=== PATIENT | male | born 1940 | race Caucasian/White ===

== ENCOUNTER 2017-06-22 16:34 | Inpatient (IN) | payer MEDICARE, BC ==
[2017-06-22] MEDS ORDERED: Aspirin 81 MG Tab.Chew PO ONE (17:16)
--- NOTE | 2017-06-22 17:17 | EDM.PDOC ---
ED HPI GENERAL MEDICAL PROBLEM - General Chief Complaint: Chest Pain Stated Complaint: CHEST PAIN Time Seen by Provider: 06/22/17 17:10 Source of Information: Reports: Patient History Limitations: Reports: No Limitations - History of Present Illness INITIAL COMMENTS - FREE TEXT/NARRATIVE: 76-year-old male with known coronary artery disease who has over the past 2 weeks had intermittent chest pain seemingly related to activity. This followed up active case of bronchitis which she was initially on prednisone, then a Zithromax pack then Levaquin. He has been told he has "early bronchitis". 2 years ago he had similar symptoms and received a cardiac stent. Onset: Gradual Location: Reports: Chest. Denies: Abdomen Severity: Mild Worsens with: Reports: Other (Seems to be worse with activity intermittently) Associated Symptoms: Reports: Other (Been chilled a lot, week and tires easily) . Denies: Fever/Chills, Headaches Chest Pain Score (Numeric/FACES): 4 - Related Data Allergies Allergy/AdvReac Type Severity Reaction Status Date / Time No Known Allergies Allergy Verified 06/22/17 16:52 Home Meds: Home Meds Betamethasone Dipropionate [Diprosone 0.05% Crm] 1 applic TOP DAILY PRN [History] HCTZ/Triamterene [Maxzide 25-37.5 MG] 1 tab PO DAILY 08/11/14 [History] Metoprolol Tartrate 25 mg PO BID #60 tablet 08/30/14 [Rx] Nitroglycerin [Nitrostat] 0.4 mg SL ASDIRECTED PRN #30 tab.subl 08/30/14 [Rx] Albuterol [Ventolin HFA] 2 puff INH Q6H 06/30/16 [History] Aspirin [Low Dose Aspirin EC] 81 mg PO DAILY 06/30/16 [History] Chondroitin/Glucosamine [Glucosamine-Chondroitin Capsule] 1 cap PO DAILY [History] Fish Oil/[place]-3 Fatty Acids [Fish Oil 1,000 MG] 1 tab PO DAILY 06/30/16 [ History] Multivitamin [Multi-Day Vitamins] 1 tab PO DAILY 06/30/16 [History] Rivaroxaban [Xarelto] 1 tab PO DAILY 06/30/16 [History] atorvaSTATin [Lipitor] 40 mg PO ONETIME 06/30/16 [History] Past Medical History HEENT History: Reports: Impaired Vision Cardiovascular History: Reports: Afib, CAD, High Cholesterol, Hypertension Respiratory History: Reports: COPD Other Respiratory History: sinus congestion Musculoskeletal History: Reports: Fracture Neurological History: Reports: Concussion, Head Trauma Hematologic History: Reports: Blood Transfusion(s) Dermatologic History: Reports: Other (See Below) Other Dermatologic History: Rash - Infectious Disease History Infectious Disease History: Reports: Chicken Pox - Past Surgical History HEENT Surgical History: Reports: Cataract Surgery Cardiovascular Surgical History: Reports: Coronary Artery Stent GI Surgical History: Reports: Colonoscopy Social & Family History - Tobacco Use Smoking Status *Q: Former Smoker Years of Tobacco use: 30 Used Tobacco, but Quit: Yes Month Tobacco Last Used: 1989 Second Hand Smoke Exposure: No - Caffeine Use Caffeine Use: Reports: Coffee - Recreational Drug Use Recreational Drug Use: No Drug Use in Last 12 Months: No ED ROS GENERAL - Review of Systems Review Of Systems: See Below Constitutional: Reports: Malaise, Weakness. Denies: Fever, Chills HEENT: Reports: No Symptoms Respiratory: Reports: Shortness of Breath (Especially with activity) Cardiovascular: Reports: Chest Pain (Especially with activity) GI/Abdominal: Reports: Other (Patient admits that his stools are been darker over the past several weeks to months). Denies: Abdominal Pain, Nausea, Vomiting : Reports: No Symptoms Skin: Reports: No Symptoms Neurological: Denies: Headache Psychiatric: Reports: No Symptoms ED EXAM, GENERAL - Physical Exam Exam: See Below Exam Limited By: No Limitations General Appearance: Alert, No Apparent Distress Eye Exam: Bilateral Eye: Normal Inspection Respiratory/Chest: No Respiratory Distress, Lungs Clear Cardiovascular: Regular Rate, Rhythm GI/Abdominal: Soft, Non-Tender Rectal (Males) Exam: Bloody Stool, Heme + Stool. No: Mass Extremities: Normal Inspection. No: Pedal Edema Neurological: Alert, Oriented Psychiatric: Normal Affect, Normal Mood Skin Exam: Warm, Dry EKG INTERPRETATION Rhythm: NSR Course - Vital Signs Last Recorded V/S: Last Vital Signs Temp 97.9 F 06/23/17 08:55 Pulse 53 L 06/23/17 11:06 Resp 14 06/23/17 08:55 BP 121/62 06/23/17 09:27 Pulse Ox 93 L 06/23/17 08:55 - Orders/Labs/Meds Orders: Active Orders 24 hr Category Date Time Status EKG 12 Lead [EK] Routine Ther 06/22/17 17:16 Stop Req Medication Orders Acetaminophen (Tylenol) 650 mg PO Q4H PRN PRN Reason: Pain (Mild 1-3)/fever Albuterol (Proventil Neb Soln) 2.5 mg NEB Q4H PRN PRN Reason: Shortness Of Breath/wheezing Albuterol/Ipratropium (Duoneb 3.0-0.5 Mg/3 Ml) 3 ml NEB QIDRT [facility] Last Admin: 06/23/17 11:06 Dose: 3 ml Admin: 06/23/17 07:10 Dose: 3 ml Admin: 06/22/17 22:08 Dose: 3 ml Atorvastatin Calcium (Lipitor) 40 mg PO BEDTIME [facility] Last Admin: 06/22/17 22:08 Dose: 40 mg Betamethasone Dipropionate (Diprolene Af 0.05% Crm) 0 gm TOP DAILY PRN PRN Reason: Itching Pantoprazole Sodium 80 mg/ (Sodium Chloride) 100 mls @ 10 mls/hr IV .Q10H [facility] Last Admin: 06/23/17 10:24 Dose: 10 mls/hr Sodium Chloride (Normal Saline) 1,000 mls @ 75 mls/hr IV ASDIRECTED [facility] Lorazepam (Ativan) 1 mg IV Q6H PRN PRN Reason: Nausea/Vomiting Magnesium Oxide (Magnesium Oxide) 400 mg PO DAILY [facility] Last Admin: 06/23/17 09:28 Dose: 400 mg Admin: 06/22/17 22:07 Dose: 400 mg Metoprolol Tartrate (Lopressor) 25 mg PO BID [facility] Last Admin: 06/23/17 09:27 Dose: 25 mg Admin: 06/22/17 22:08 Dose: Morphine Sulfate (Morphine) 2 mg IVPUSH Q2H PRN PRN Reason: Pain (severe 7-10) Nitroglycerin (Nitrostat) 0.4 mg SL ASDIRECTED PRN PRN Reason: Chest Pain Ondansetron HCl (Zofran Odt) 4 mg PO Q6H PRN PRN Reason: Nausea able to take PO Ondansetron HCl (Zofran) 4 mg IV Q4H PRN PRN Reason: Nausea/Vomiting Oxycodone HCl (Oxycodone) 5 mg PO Q4H PRN PRN Reason: Pain (moderate 4-6) Triamterene/HCTZ (Maxzide 25-37.5 Mg) 1 each PO DAILY [facility] Last Admin: 06/23/17 09:28 Dose: 1 each Zolpidem Tartrate (Ambien) 5 mg PO BEDTIME PRN PRN Reason: Sleep Labs: Laboratory Tests 06/22/17 06/22/17 Range/Units 17:30 17:30 WBC 8.1 (4.5-11.0) K/uL RBC 2.95 L (4.30-5.90) M/uL Hgb 8.3 L D (12.0-15.0) g/dL Hct 27.1 L (40.0-54.0) % MCV 92 (80-98) fL MCH 28 (27-31) pg MCHC 31 L (32-36) % Plt Count 223 (150-400) K/uL Neut % (Auto) 62 (36-66) % Lymph % (Auto) 20 L (24-44) % [place] % (Auto) 10 H (2-6) % Eos % (Auto) 8 H (2-4) % Baso % (Auto) 0 (0-1) % Sodium 144 (140-148) mmol/L Potassium 3.7 (3.6-5.2) mmol/L Chloride 108 (100-108) mmol/L Carbon Dioxide 29 (21-32) mmol/L Anion Gap 6.6 (5.0-14.0) mmol/L BUN 23 H (7-18) mg/dL Creatinine 1.0 (0.8-1.3) mg/dL Est Cr Clr Drug Dosing 67.96 mL/min Estimated GFR (MDRD) > 60 (>60) Glucose 86 (74-106) mg/dL Calcium 8.8 (8.5-10.1) mg/dL Total Bilirubin 0.3 (0.2-1.0) mg/dL AST 17 (15-37) U/L ALT 24 (12-78) U/L Alkaline Phosphatase 37 L (46-116) U/L Troponin I < 0.017 (0.000-0.056) ng/mL Total Protein 6.4 (6.4-8.2) g/dL Albumin 3.3 L (3.4-5.0) g/dL Globulin 3.1 (2.3-3.5) g/dL Albumin/Globulin Ratio 1.1 L (1.2-2.2) Meds: Medications Generic Name Dose Route Start Last Admin Trade Name Freq PRN Reason Stop Dose Admin Acetaminophen 650 mg 06/22/17 20:29 Tylenol PO Q4H PRN Pain (Mild 1-3)/fever Albuterol 2.5 mg 06/22/17 20:29 Proventil Neb Soln NEB Q4H PRN Shortness Of Breath/wheezing Albuterol/Ipratropium 3 ml 06/22/17 21:00 06/23/17 11:06 Duoneb 3.0-0.5 Mg/3 Ml NEB 3 ml QIDRT [facility] Administration Atorvastatin Calcium 40 mg 06/22/17 21:59 06/22/17 22:08 Lipitor PO 40 mg BEDTIME [facility] Administration Betamethasone Dipropionate 0 gm 06/23/17 07:38 Diprolene Af 0.05% Crm TOP DAILY PRN Itching Pantoprazole Sodium 80 mg/ 100 mls @ 10 mls/hr 06/23/17 10:00 06/23/17 10:24 Sodium Chloride IV 10 mls/hr .Q10H [facility] Administration Sodium Chloride 1,000 mls @ 75 mls/hr 06/23/17 10:00 Normal Saline IV ASDIRECTED [facility] Lorazepam 1 mg 06/22/17 20:29 Ativan IV Q6H PRN Nausea/Vomiting Magnesium Oxide 400 mg 06/22/17 21:00 06/23/17 09:28 Magnesium Oxide PO 400 mg DAILY [facility] Administration Metoprolol Tartrate 25 mg 06/22/17 21:00 06/23/17 09:27 Lopressor PO 25 mg BID [facility] Administration Morphine Sulfate 2 mg 06/22/17 20:29 Morphine IVPUSH Q2H PRN Pain (severe 7-10) Nitroglycerin 0.4 mg 06/22/17 20:29 Nitrostat SL ASDIRECTED PRN Chest Pain Ondansetron HCl 4 mg 06/22/17 20:29 Zofran Odt PO Q6H PRN Nausea able to take PO Ondansetron HCl 4 mg 06/22/17 20:29 Zofran IV Q4H PRN Nausea/Vomiting Oxycodone HCl 5 mg 06/22/17 20:29 Oxycodone PO Q4H PRN Pain (moderate 4-6) Triamterene/HCTZ 1 each 06/23/17 09:00 06/23/17 09:28 Maxzide 25-37.5 Mg PO 1 each DAILY [facility] Administration Zolpidem Tartrate 5 mg 06/22/17 20:29 Ambien PO BEDTIME PRN Sleep Discontinued Medications Generic Name Dose Route Start Last Admin Trade Name Cherise PRN Reason Stop Dose Admin Aspirin 324 mg 06/22/17 17:16 06/22/17 18:30 Aspirin PO 06/22/17 17:17 324 mg ONETIME ONE Administration Atorvastatin Calcium 40 mg 06/22/17 20:29 Lipitor PO ONETIME [facility] Betamethasone Dipropionate 0 gm 06/22/17 20:29 Diprolene Af 0.05% Crm TOP DAILY PRN Itching Sodium Chloride 1,000 mls @ 125 mls/hr 06/22/17 20:29 06/23/17 07:52 Normal Saline IV 125 mls/hr ASDIRECTED [facility] Administration Sodium Chloride 1,000 mls @ 100 mls/hr 06/23/17 10:00 Normal Saline IV ASDIRECTED [facility] Pantoprazole Sodium 40 mg 06/22/17 20:29 06/22/17 22:07 Protonix PO 40 mg DAILY [facility] Administration Pantoprazole Sodium 40 mg 06/23/17 09:00 06/23/17 09:29 Protonix PO 40 mg ACBREAKFAST [facility] Administration Pantoprazole Sodium 40 mg 06/23/17 10:00 06/23/17 10:17 Protonix Iv IVPUSH 06/23/17 10:01 40 mg ONETIME ONE Administration - Re-Assessments/Exams Free Text/Narrative Re-Assessment/Exam: 06/22/17 19:07 EKG was normal. Troponin, CBC and CMP were obtained. Hemoglobin was found to be only 8.3, compared to 12.4 2 years ago. A stool check then was found to be grossly bloody, obviously guaiac positive. Troponin was 0. Patient will be admitted for evaluation of his blood loss which likely is causing his anginal- like symptoms and dyspnea with activity. He also may need stress testing once his anemia is corrected. Departure - Departure Time of Disposition: 20:44 Disposition: Admitted As Inpatient 66 Condition: Fair Clinical Impression: Blood loss anemia, Atypical chest pain GI bleed Qualifiers: GI bleed type/associated pathology: unspecified gastrointestinal hemorrhage type Qualified Code(s): K92.2 - Gastrointestinal hemorrhage, unspecified - My Orders Last 24 Hours: My Active Orders 06/22/17 17:16 EKG 12 Lead [EK] Routine - Assessment/Plan Last 24 Hours: My Active Orders 06/22/17 17:16 EKG 12 Lead [EK] Routine
[2017-06-22] MEDS ORDERED: atorvaSTATin 20 MG Tab PO SCH (20:29)
[2017-06-22] MEDS ORDERED: oxyCODONE 5 MG Tab PO PRN (20:29)
[2017-06-22] MEDS ORDERED: Betamethasone Dipropionate 0.05% Crm 15 GM Tube TOP PRN (20:29)
[2017-06-22] MEDS ORDERED: Ondansetron 4 MG/2 ML SDV IV PRN (20:29)
[2017-06-22] MEDS ORDERED: Acetaminophen 325 MG Tab PO PRN (20:29)
[2017-06-22] MEDS ORDERED: Pantoprazole 40 MG Tab.CR PO SCH (20:29)
[2017-06-22] MEDS ORDERED: Morphine 2 MG/ML Syringe IVPUSH PRN (20:29)
[2017-06-22] MEDS ORDERED: Ondansetron 4 MG Tab.DIS PO PRN (20:29)
[2017-06-22] MEDS ORDERED: Albuterol 0.083% 2.5 MG/3 ML Neb Soln NEB PRN (20:29)
[2017-06-22] MEDS ORDERED: LORazepam 2 MG/ML MDV IV PRN (20:29)
[2017-06-22] MEDS ORDERED: Nitroglycerin 0.4 MG Tab.SL SL PRN (20:29)
[2017-06-22] MEDS ORDERED: Zolpidem 5 MG Tab PO PRN (20:29)
--- NOTE | 2017-06-22 20:53 | PCM.HP ---
H&P History of Present Illness - General Date of Service: 06/22/17 Admit Problem/Dx: Admission Diagnosis/Problem Admission Diagnosis/Problem Atypical chest pain Source of Information: Patient, Family ( ) History Limitations: Reports: No Limitations - History of Present Illness Initial Comments - Free Text/Narative: 76-year-old male with known coronary artery disease who has over the past 2 weeks had intermittent chest pain seemingly related to activity. This followed up active case of bronchitis which he was initially on prednisone, then a Zithromax pack then Levaquin. He has been told he has "early bronchitis". 2 years ago he had similar symptoms and received a cardiac stent. Onset: Gradual Location: Reports: Chest. Denies: Abdomen Severity: Mild Worsens with: Reports: Other (Seems to be worse with activity intermittently) Associated Symptoms: Reports: Other (Been chilled a lot, week and tires easily) . Denies: Fever/Chills, Headaches Chest Pain Score (Numeric/FACES): 4 06/22/17 19:07 EKG was normal. Troponin, CBC and CMP were obtained. Hemoglobin was found to be only 8.3, compared to 12.4 - 2 years ago. A stool check then was found to be grossly bloody, obviously guaiac positive. Troponin was 0. Patient will be admitted for evaluation of his blood loss which likely is causing his anginal- like symptoms and dyspnea with activity. He also may need stress testing once his anemia is corrected. Onset of Symptoms: Reports: Gradual (report stool changes for the past one to one and half week. ) Duration of Symptoms: Reports: Day(s):, Getting Worse Location: Reports: Generalized Quality: Reports: Pressure (chest pressure and weakness with activity for the past one and half weeks.) Severity: Moderate Improves with: Reports: None Worsens with: Reports: Movement Context: Reports: Other (stool changes x 1.5 weeks.) Associated Symptoms: Reports: Chest Pain, Malaise, Shortness of Breath (with activity), Weakness Chest Pain Score (Numeric/FACES): 4 - Related Data Allergies/Adverse Reactions: Allergies Allergy/AdvReac Type Severity Reaction Status Date / Time No Known Allergies Allergy Verified 06/22/17 16:52 Home Medications: Home Meds Betamethasone Dipropionate [Diprosone 0.05% Crm] 1 applic TOP DAILY PRN [History] HCTZ/Triamterene [Maxzide 25-37.5 MG] 1 tab PO DAILY 08/11/14 [History] Metoprolol Tartrate 25 mg PO BID #60 tablet 08/30/14 [Rx] Nitroglycerin [Nitrostat] 0.4 mg SL ASDIRECTED PRN #30 tab.subl 08/30/14 [Rx] Albuterol [Ventolin HFA] 2 puff INH Q6H 06/30/16 [History] Aspirin [Low Dose Aspirin EC] 81 mg PO DAILY 06/30/16 [History] Chondroitin/Glucosamine [Glucosamine-Chondroitin Capsule] 1 cap PO DAILY [History] Fish Oil/[place]-3 Fatty Acids [Fish Oil 1,000 MG] 1 tab PO DAILY 06/30/16 [ History] Multivitamin [Multi-Day Vitamins] 1 tab PO DAILY 06/30/16 [History] Rivaroxaban [Xarelto] 1 tab PO DAILY 06/30/16 [History] atorvaSTATin [Lipitor] 40 mg PO ONETIME 06/30/16 [History] Past Medical History HEENT History: Reports: Impaired Vision Cardiovascular History: Reports: Afib, CAD, High Cholesterol, Hypertension Respiratory History: Reports: COPD Other Respiratory History: sinus congestion Musculoskeletal History: Reports: Fracture Neurological History: Reports: Concussion, Head Trauma Hematologic History: Reports: Blood Transfusion(s) Dermatologic History: Reports: Other (See Below) Other Dermatologic History: Rash - Infectious Disease History Infectious Disease History: Reports: Chicken Pox - Past Surgical History HEENT Surgical History: Reports: Cataract Surgery Cardiovascular Surgical History: Reports: Coronary Artery Stent GI Surgical History: Reports: Colonoscopy Social & Family History - Tobacco Use Smoking Status *Q: Former Smoker Years of Tobacco use: 30 Used Tobacco, but Quit: Yes Month Tobacco Last Used: 1989 Second Hand Smoke Exposure: No - Caffeine Use Caffeine Use: Reports: Coffee - Recreational Drug Use Recreational Drug Use: No Drug Use in Last 12 Months: No - Living Situation & Occupation Living situation: Reports: Occupation: Retired H&P Review of Systems - Review of Systems: Review Of Systems: See Below General: Reports: Weakness, Other (shortness of breath and chest pressure with activity, stool changes all in the past one and half week.) HEENT: Reports: No Symptoms Pulmonary: Reports: Shortness of Breath, Pleuritic Chest Pain, Cough (hx of COPD ) Cardiovascular: Reports: Chest Pain (with activity), Dyspnea on Exertion Gastrointestinal: Reports: Bloody Stool, Decreased Appetite Genitourinary: Reports: No Symptoms Musculoskeletal: Reports: Back Pain (chronic per Mr. Solano) Skin: Reports: Pallor Psychiatric: Reports: No Symptoms Neurological: Reports: No Symptoms Hematologic/Lymphatic: Reports: No Symptoms Immunologic: Reports: No Symptoms Exam - Exam Exam: See Below - Vital Signs Vital Signs: Last Vital Signs Temp 36.6 C 06/22/17 19:41 Pulse 70 06/22/17 18:11 Resp 17 06/22/17 19:41 BP 172/84 H 06/22/17 19:41 Pulse Ox 94 L 06/22/17 19:41 Weight: 91 kg - Exam General: Alert, Oriented, Cooperative HEENT: PERRLA, Conjunctiva Clear, EACs Clear, EOMI, Hearing Intact, Mucosa Moist & [place], Nares Patent, Normal Nasal Septum, Posterior Pharynx Clear, Pupils Equal, Pupils Reactive, TMs Clear, Glasses Neck: Supple, Trachea Midline Lungs: Clear to Auscultation, Normal Respiratory Effort, Rales (left lower chest. ) Cardiovascular: Regular Rate, Regular Rhythm, Normal S1, Normal S2 GI/Abdominal Exam: Normal Bowel Sounds, Soft, Non-Tender, No Organomegaly, Distended (mild distension vs body habitus) (Male) Exam: Deferred (see Er report; dilia blood noted at rectum) Rectal (Males) Exam: Deferred (see er note) Back Exam: Normal Inspection, Full Range of Motion Extremities: Normal Inspection, Normal Range of Motion, Non-Tender, No Pedal Edema, Normal Capillary Refill Skin: Warm, Dry, Intact Neurological: Cranial Nerves Intact, Reflexes Equal Bilateral, Strength Equal Bilateral, Normal Gait, Normal Speech, Normal Tone, Sensation Intact Neuro Extensive - Mental Status: Alert, Oriented x3, Normal Mood/Affect, Normal Cognition Neuro Extensive - Motor, Sensory, Reflexes: CN II-XII Intact, Normal Gait, Normal Reflexes Psychiatric: Alert, Normal Affect, Normal Mood - Patient Data Lab Results Last 24 hrs: Laboratory Results - last 24 hr 06/22/17 Range/Units 20:29 Magnesium 1.9 (1.8-2.4) mg/dL Result Diagrams: 06/22/17 17:30 06/22/17 17:30 *Q Meaningful Use (ADM) - VTE *Q VTE Criteria *Q: - Stroke *Q Stroke Criteria *Q: - AMI *Q AMI Criteria *Q: - Problem List (1) Atypical chest pain SNOMED Code(s): 097159618 ICD Code: R07.89 - OTHER CHEST PAIN Status: Acute Priority: High Current Visit: Yes (2) Blood loss anemia SNOMED Code(s): 948665388 ICD Code: D50.0 - IRON DEFICIENCY ANEMIA SECONDARY TO BLOOD LOSS (CHRONIC) Status: Acute Priority: High Current Visit: Yes (3) GI bleed SNOMED Code(s): 94066271 ICD Code: K92.2 - GASTROINTESTINAL HEMORRHAGE, UNSPECIFIED Status: Acute Current Visit: Yes Qualifiers: GI bleed type/associated pathology: unspecified gastrointestinal hemorrhage type Qualified Code(s): K92.2 - Gastrointestinal hemorrhage, unspecified (4) COPD (chronic obstructive pulmonary disease) SNOMED Code(s): 89837623 ICD Code: J44.9 - CHRONIC OBSTRUCTIVE PULMONARY DISEASE, UNSPECIFIED Status : Acute Current Visit: Yes Qualifiers: COPD type: unspecified COPD Qualified Code(s): J44.9 - Chronic obstructive pulmonary disease, unspecified Problem List Initiated/Reviewed/Updated: Yes Orders Last 24hrs: Active Orders 24 hr Category Date Time Status Patient Status [ADT] Routine ADT 06/22/17 20:29 Active Bedrest Bathroom Privileges [RC] ASDIRECTED Care 06/22/17 20:29 Active Cardiac Education [RC] Click to Edit Care 06/22/17 20:29 Active Cardiac Monitoring [RC] .As Directed Care 06/22/17 20:29 Active Cardiac Monitoring [RC] CONTINUOUS Care 06/22/17 20:29 Active Intake and Output [RC] QSHIFT Care 06/22/17 20:29 Active Notify Provider Consults [RC] ASDIRECTED Care 06/22/17 20:29 Active Notify Provider Vital Signs [RC] ASDIRECTED Care 06/22/17 20:29 Active Oxygen Therapy [RC] PRN Care 06/22/17 20:29 Active Pulse Oximetry [RC] CONTINUOUS Care 06/22/17 20:29 Active RT Aerosol Therapy [RC] ASDIRECTED Care 06/22/17 20:29 Active VTE/DVT Education [RC] Per Unit Routine Care 06/22/17 20:29 Active Vital Signs [RC] Q4H Care 06/22/17 20:29 Active Consult to Physician [CONS] Routine Cons 06/22/17 20:29 Ordered Consult to Spiritual Care [CONS] Routine Cons 06/22/17 20:29 Active OT Evaluation and Treatment [CONS] Routine Cons 06/22/17 20:29 Active Regular Diet [DIET] Diet 06/22/17 Breakfast Active BASIC METABOLIC PANEL,BMP [CHEM] AM Lab 06/23/17 05:11 Ordered CBC WITH AUTO DIFF [HEME] AM Lab 06/23/17 05:11 Ordered INR,PT,PROTHROMBIN TIME [COAG] AM Lab 06/23/17 05:11 Ordered RED BLOOD CELLS LP [BBK] Routine Lab 06/22/17 20:42 Received TROPONIN I [CHEM] Routine Lab 06/22/17 23:30 Ordered TYPE AND SCREEN [BBK] Urgent Lab 06/22/17 20:42 Received Acetaminophen [Tylenol] Med 06/22/17 20:29 Ordered 650 mg PO Q4H PRN Albuterol [Proventil Neb Soln] Med 06/22/17 20:29 Ordered 2.5 mg NEB Q4H PRN Albuterol/Ipratropium [DuoNeb 3.0-0.5 MG/3 ML] Med 06/22/17 22:00 Ordered 3 ml NEB QID Betamethasone Dipropionate [Diprosone 0.05% Crm] Med 06/22/17 20:29 Ordered 1 applic TOP DAILY PRN HCTZ/Triamterene [Maxzide 25-37.5 MG] Med 06/23/17 09:00 Ordered DOSE each PO DAILY LORazepam [Ativan] Med 06/22/17 20:29 Ordered 1 mg IV Q6H PRN Magnesium Oxide Med 06/22/17 21:00 Ordered 400 mg PO DAILY Metoprolol Tartrate [Lopressor] Med 06/22/17 21:00 Ordered 25 mg PO BID Morphine Med 06/22/17 20:29 Ordered 2 mg IVPUSH Q2H PRN Nitroglycerin [Nitrostat] Med 06/22/17 20:29 Ordered 0.4 mg SL ASDIRECTED PRN Ondansetron [Zofran ODT] Med 06/22/17 20:29 Ordered 4 mg PO Q6H PRN Ondansetron [Zofran] Med 06/22/17 20:29 Ordered 4 mg IV Q4H PRN Pantoprazole [ProTONIX] Med 06/22/17 20:29 Ordered 40 mg PO DAILY Sodium Chloride 0.9% [Normal Saline] 1,000 ml Med 06/22/17 20:29 Ordered IV ASDIRECTED Zolpidem [Ambien] Med 06/22/17 20:29 Ordered 5 mg PO BEDTIME PRN atorvaSTATin [Lipitor] Med 06/22/17 20:29 Ordered 40 mg PO ONETIME oxyCODONE Med 06/22/17 20:29 Ordered 5 mg PO Q4H PRN ECG Stress Exercise [OM.PC] Routine Oth 06/23/17 07:00 Ordered Sequential Compression Device [OM.PC] Per Unit Routine Oth 06/22/17 20:29 Ordered Transfuse Red Blood Cells [COMM] Urgent Oth 06/22/17 20:29 Ordered Resuscitation Status Routine Resus Stat 06/22/17 19:46 Ordered Medication Orders Acetaminophen (Tylenol) 650 mg PO Q4H PRN PRN Reason: Pain (Mild 1-3)/fever Albuterol (Proventil Neb Soln) 2.5 mg NEB Q4H PRN PRN Reason: Shortness Of Breath/wheezing Albuterol/Ipratropium (Duoneb 3.0-0.5 Mg/3 Ml) 3 ml NEB QID [facility] Sodium Chloride (Normal Saline) 1,000 mls @ 125 mls/hr IV ASDIRECTED [facility] Lorazepam (Ativan) 1 mg IV Q6H PRN PRN Reason: Nausea/Vomiting Magnesium Oxide (Magnesium Oxide) 400 mg PO DAILY [facility] Metoprolol Tartrate (Lopressor) 25 mg PO BID [facility] Morphine Sulfate (Morphine) 2 mg IVPUSH Q2H PRN PRN Reason: Pain (severe 7-10) Nitroglycerin (Nitrostat) 0.4 mg SL ASDIRECTED PRN PRN Reason: Chest Pain Non-Formulary Medication (Atorvastatin [Lipitor]) 40 mg PO ONETIME [place] Non-Formulary Medication (Betamethasone Dipropionate [Diprosone 0.05% Crm]) 1 applic TOP DAILY PRN PRN Reason: Itching Ondansetron HCl (Zofran Odt) 4 mg PO Q6H PRN PRN Reason: Nausea able to take PO Ondansetron HCl (Zofran) 4 mg IV Q4H PRN PRN Reason: Nausea/Vomiting Oxycodone HCl (Oxycodone) 5 mg PO Q4H PRN PRN Reason: Pain (moderate 4-6) Pantoprazole Sodium (Protonix) 40 mg PO DAILY [facility] Triamterene/HCTZ (Maxzide 25-37.5 Mg) each PO DAILY [facility] Zolpidem Tartrate (Ambien) 5 mg PO BEDTIME PRN PRN Reason: Sleep Assessment/Plan Comment:: ASSESSMENT AND PLAN 76-year-old male with known coronary artery disease who has over the past 2 weeks had intermittent chest pain seemingly related to activity. This followed up active case of bronchitis which he was initially on prednisone, then a Zithromax pack then Levaquin. He has been told he has "early bronchitis". 2 years ago he had similar symptoms and received a cardiac stent. Onset: Gradual Location: Reports: Chest. Denies: Abdomen Severity: Mild Worsens with: Reports: Other (Seems to be worse with activity intermittently) Associated Symptoms: Reports: Other (Been chilled a lot, week and tires easily) . Denies: Fever/Chills, Headaches Chest Pain Score (Numeric/FACES): 4 06/22/17 19:07 EKG was normal. Troponin, CBC and CMP were obtained. Hemoglobin was found to be only 8.3, compared to 12.4 - 2 years ago. A stool check then was found to be grossly bloody, obviously guaiac positive. Troponin was 0. Patient will be admitted for evaluation of his blood loss which likely is causing his anginal- like symptoms and dyspnea with activity. He also may need stress testing once his anemia is corrected. PLAN Admit ICU Med-Surg overflow. for further care and treatment GI Bleed with blood loss -hold all blood thinners and anticoagulants -IV Fluids for rehydration NS at 125 mL per hour -I & O, monitor stools for active bleeding -type and cross for 2 units -give one unit of PRBC tonight -Advise to notify nurses of any chest pain or other symptoms -And a.m. labs: CBC, BMP -Consult to Surgery for GI bleed. Atypical Chest pain -history of Atrial Fib/flutter -correct anemia -Cardiolyte stress test in am. -Telemetry -labs; Troponin every 6 hours x 2, had one negative result in ER -EKG in am -Advise to notify nurses of any chest pain or other symptoms COPD -Duonebs every 6 hours scheduled -Albuterol nebs every 4 hours prn -Robituss AC 10 ml every 4 hours prn cough Muscle cramps -Magnesium 400 mg po tonight Maintenance issues -Orders home meds: hold -Nutrition: regular diet -Mooney catheter not indicated at this time -DVT: SCD -PPI; PO Protonix 40mg daily -consult PT for strengthening. -consult Spiritual CODE STATUS: FULL CODE Admission status: Admit to ICU Med-Surg overflow Admission justification. This patient will be admitted for inpatient services and is medically appropriate meeting medical necessity for inpatient admission as outlined in my documentation. I reasonably expect the patient will require inpatient services that span. Time over 2 midnights. I reasonably expect this patient to be discharged or transferred within 96 hours after admission to the critical access hospital. Disposition; home Primary care provider: Dr. Vladimir Lemons Hospitalist: Dr. Negron
[2017-06-22] MEDS: Magnesium Oxide 400 MG Tab PO SCH (22:07)
[2017-06-22] MEDS: Albuterol/Ipratropium 3.0-0.5 MG/3 ML Neb Soln NEB SCH (22:08)
[2017-06-22] MEDS: atorvaSTATin 20 MG Tab PO SCH (22:08)
[2017-06-22] MEDS: Metoprolol Tartrate 25 MG Tab PO SCH (22:08)
[2017-06-23] MEDS: Sodium Chloride 0.9% 1,000 ML IV SCH ×3 (01:22→19:19)
[2017-06-23] MEDS: Albuterol/Ipratropium 3.0-0.5 MG/3 ML Neb Soln NEB SCH ×4 (07:10→20:18)
[2017-06-23] MEDS ORDERED: Betamethasone Dipropionate 0.05% Crm 15 GM Tube TOP PRN (07:38)
[2017-06-23] MEDS ORDERED: Pantoprazole 40 MG Tab.CR PO SCH (09:00)
[2017-06-23] MEDS: Metoprolol Tartrate 25 MG Tab PO SCH ×2 (09:27→20:18)
[2017-06-23] MEDS: Hydrochlorothiazide/Triamterene 25-37.5 Tab PO SCH (09:28)
[2017-06-23] MEDS: Magnesium Oxide 400 MG Tab PO SCH (09:28)
--- NOTE | 2017-06-23 09:58 | PCM.PN ---
- General Info Date of Service: 06/23/17 Subjective Update: This patient is a 76-year-old gentleman who is admitted through the emergency department last night with anemia secondary to GI bleed and chest pain. He has a known history of coronary artery disease and is status post angioplasty and stent placement done approximately 2 years ago. He is on long-term therapy with Xarelto because of a history of atrial fibrillation. Since admission he is had no further symptoms of chest pain or pressure in his troponin levels have been within normal range. Xarelto is been held and he was transfused 1 unit of red blood cells because of evidence of bleeding as well as chest pain. Hemoglobin went from 8.3to 8.7. He did have another, melenic stool this morning with evidence of ongoing bleeding. Functional Status: Reports: Urinating - Patient Data Vitals - Most Recent: Last Vital Signs Temp 97.9 F 06/23/17 08:55 Pulse 63 06/23/17 09:27 Resp 14 06/23/17 08:55 BP 121/62 06/23/17 09:27 Pulse Ox 93 L 06/23/17 08:55 Weight - Most Recent: 200 lb 9.93 oz I&O - Last 24 Hours: Intake & Output 06/22/17 06/23/17 06/23/17 22:59 06:59 14:59 Intake Total 0 941 Output Total 375 Balance 0 566 Lab Results Last 24 Hours: Laboratory Results - last 24 hr 06/22/17 06/22/17 06/22/17 Range/Units 20:29 20:42 23:35 WBC (4.5-11.0) K/uL RBC (4.30-5.90) M/uL Hgb (12.0-15.0) g/dL Hct (40.0-54.0) % MCV (80-98) fL MCH (27-31) pg MCHC (32-36) % Plt Count (150-400) K/uL Neut % (Auto) (36-66) % Lymph % (Auto) (24-44) % [place] % (Auto) (2-6) % Eos % (Auto) (2-4) % Baso % (Auto) (0-1) % PT (9.5-12.0) sec INR (0.80-1.20) Sodium (140-148) mmol/L Potassium (3.6-5.2) mmol/L Chloride (100-108) mmol/L Carbon Dioxide (21-32) mmol/L Anion Gap (5.0-14.0) mmol/L BUN (7-18) mg/dL Creatinine (0.8-1.3) mg/dL Est Cr Clr Drug Dosing mL/min Estimated GFR (MDRD) (>60) Glucose (74-106) mg/dL Calcium (8.5-10.1) mg/dL Magnesium 1.9 (1.8-2.4) mg/dL Troponin I < 0.017 (0.000-0.056) ng/mL Blood Type A POSITIVE Gel Antibody Screen Negative Crossmatch See Detail 06/23/17 06/23/17 06/23/17 Range/Units 05:45 05:45 05:45 WBC 6.6 (4.5-11.0) K/uL RBC 3.04 L (4.30-5.90) M/uL Hgb 8.7 L (12.0-15.0) g/dL Hct 27.5 L (40.0-54.0) % MCV 91 (80-98) fL MCH 29 (27-31) pg MCHC 32 (32-36) % Plt Count 197 (150-400) K/uL Neut % (Auto) 56 (36-66) % Lymph % (Auto) 21 L (24-44) % [place] % (Auto) 14 H (2-6) % Eos % (Auto) 9 H (2-4) % Baso % (Auto) 0 (0-1) % PT 11.3 (9.5-12.0) sec INR 1.05 (0.80-1.20) Sodium 144 (140-148) mmol/L Potassium 3.9 (3.6-5.2) mmol/L Chloride 109 H (100-108) mmol/L Carbon Dioxide 29 (21-32) mmol/L Anion Gap 9.9 (5.0-14.0) mmol/L BUN 23 H (7-18) mg/dL Creatinine 1.0 (0.8-1.3) mg/dL Est Cr Clr Drug Dosing 66.93 mL/min Estimated GFR (MDRD) > 60 (>60) Glucose 91 (74-106) mg/dL Calcium 8.8 (8.5-10.1) mg/dL Magnesium (1.8-2.4) mg/dL Troponin I (0.000-0.056) ng/mL Blood Type Gel Antibody Screen Crossmatch Med Orders - Current: Current Medications Acetaminophen (Tylenol) 650 mg PO Q4H PRN PRN Reason: Pain (Mild 1-3)/fever Albuterol (Proventil Neb Soln) 2.5 mg NEB Q4H PRN PRN Reason: Shortness Of Breath/wheezing Albuterol/Ipratropium (Duoneb 3.0-0.5 Mg/3 Ml) 3 ml NEB QIDRT [facility] Last Admin: 06/23/17 07:10 Dose: 3 ml Atorvastatin Calcium (Lipitor) 40 mg PO BEDTIME [facility] Last Admin: 06/22/17 22:08 Dose: 40 mg Betamethasone Dipropionate (Diprolene Af 0.05% Crm) 0 gm TOP DAILY PRN PRN Reason: Itching Pantoprazole Sodium 80 mg/ (Sodium Chloride) 100 mls @ 10 mls/hr IV .Q10H [facility] Sodium Chloride (Normal Saline) 1,000 mls @ 75 mls/hr IV ASDIRECTED [facility] Lorazepam (Ativan) 1 mg IV Q6H PRN PRN Reason: Nausea/Vomiting Magnesium Oxide (Magnesium Oxide) 400 mg PO DAILY [facility] Last Admin: 06/23/17 09:28 Dose: 400 mg Metoprolol Tartrate (Lopressor) 25 mg PO BID [facility] Last Admin: 06/23/17 09:27 Dose: 25 mg Morphine Sulfate (Morphine) 2 mg IVPUSH Q2H PRN PRN Reason: Pain (severe 7-10) Nitroglycerin (Nitrostat) 0.4 mg SL ASDIRECTED PRN PRN Reason: Chest Pain Ondansetron HCl (Zofran Odt) 4 mg PO Q6H PRN PRN Reason: Nausea able to take PO Ondansetron HCl (Zofran) 4 mg IV Q4H PRN PRN Reason: Nausea/Vomiting Oxycodone HCl (Oxycodone) 5 mg PO Q4H PRN PRN Reason: Pain (moderate 4-6) Pantoprazole Sodium (Protonix Iv) 40 mg IVPUSH ONETIME ONE Stop: 06/23/17 10:01 Triamterene/HCTZ (Maxzide 25-37.5 Mg) 1 each PO DAILY [facility] Last Admin: 06/23/17 09:28 Dose: 1 each Zolpidem Tartrate (Ambien) 5 mg PO BEDTIME PRN PRN Reason: Sleep Discontinued Medications Aspirin (Aspirin) 324 mg PO ONETIME ONE Stop: 06/22/17 17:17 Last Admin: 06/22/17 18:30 Dose: 324 mg Atorvastatin Calcium (Lipitor) 40 mg PO ONETIME [place] Betamethasone Dipropionate (Diprolene Af 0.05% Crm) 0 gm TOP DAILY PRN PRN Reason: Itching Sodium Chloride (Normal Saline) 1,000 mls @ 125 mls/hr IV ASDIRECTED [facility] Last Admin: 06/23/17 07:52 Dose: 125 mls/hr Sodium Chloride (Normal Saline) 1,000 mls @ 100 mls/hr IV ASDIRECTED [facility] Pantoprazole Sodium (Protonix) 40 mg PO DAILY [facility] Last Admin: 06/22/17 22:07 Dose: 40 mg Pantoprazole Sodium (Protonix) 40 mg PO ACBREAKFAST [facility] Last Admin: 06/23/17 09:29 Dose: 40 mg - Exam General: Alert, Oriented, Cooperative, No Acute Distress Lungs: Clear to Auscultation, Normal Respiratory Effort Cardiovascular: Regular Rate, Regular Rhythm, No Murmurs GI/Abdominal Exam: Normal Bowel Sounds, Soft, Non-Tender, No Organomegaly, No Distention Extremities: Non-Tender, No Pedal Edema Skin: Warm, Dry, Intact - Problem List Review Problem List Initiated/Reviewed/Updated: Yes - My Orders Last 24 Hours: My Active Orders 06/23/17 09:45 Sodium Chloride 0.9% [Normal Saline] 100 ml Pantoprazole [ProTONIX IV] 80 mg IV 10 mls/hr 06/23/17 09:47 Transfuse Red Blood Cells [COMM] Urgent 06/23/17 10:00 Pantoprazole [ProTONIX IV] 40 mg IVPUSH ONETIME ONE Sodium Chloride 0.9% [Normal Saline] 1,000 ml IV ASDIRECTED 06/23/17 13:00 HGB [HEMOGLOBIN] [HEME] Stat 06/23/17 21:00 HGB [HEMOGLOBIN] [HEME] Stat 06/23/17 Breakfast NPO Now [Nothing per Oral Now Diet] [DIET] 06/24/17 05:00 BASIC METABOLIC PANEL,BMP [CHEM] Timed CBC WITH AUTO DIFF [HEME] Timed 06/24/17 08:00 Myocardial Perf Spect Multi [NM] Urgent - Plan Plan:: ASSESSMENT AND PLAN GI Bleed-likely a upper GI bleed given history of melenic-appearing stools, evidence of ongoing bleeding since admission. -hold all blood thinners and anticoagulants -IV Fluids NS at 75 mL per hour -I & O, monitor stools for active bleeding -Transfuse one additional unit of red blood cells today -Advise to notify nurses of any chest pain or other symptoms -Serial hemoglobin levels -Consult to Surgery for GI bleed, hold on endoscopy until after Cardiolite stress test has been performed Atypical Chest pain -history of Atrial Fib/flutter -correct anemia -Cardiolyte stress test in am. -Telemetry -Advise to notify nurses of any chest pain or other symptoms COPD -Duonebs every 6 hours scheduled -Albuterol nebs every 4 hours prn -Robituss AC 10 ml every 4 hours prn cough Muscle cramps -Magnesium 400 mg po tonight Maintenance issues -Orders home meds: hold -Nutrition: regular diet -Mooney catheter not indicated at this time -DVT: SCD -PPI; PO Protonix 40mg daily -consult PT for strengthening. -consult Spiritual CODE STATUS: FULL CODE Admission status: Admit to ICU Med-Surg overflow Admission justification. This patient will be admitted for inpatient services and is medically appropriate meeting medical necessity for inpatient admission as outlined in my documentation. I reasonably expect the patient will require inpatient services that span. Time over 2 midnights. I reasonably expect this patient to be discharged or transferred within 96 hours after admission to the critical access hospital. Disposition; home Primary care provider: Dr. Vladimir Lemons Hospitalist: Dr. Negron
[2017-06-23] MEDS ORDERED: Sodium Chloride 0.9% 1,000 ML IV SCH (10:00)
[2017-06-23] MEDS ORDERED: Pantoprazole 40 MG Vial IVPUSH ONE (10:00)
[2017-06-23] MEDS: Sodium Chloride 0.9% 100 ML with Pantoprazole 80 MG IV SCH ×4 (10:24→20:14)
[2017-06-23] MEDS: atorvaSTATin 20 MG Tab PO SCH (20:18)
[2017-06-24] MEDS: Sodium Chloride 0.9% 100 ML with Pantoprazole 80 MG IV SCH ×2 (05:50)
[2017-06-24] MEDS: Albuterol/Ipratropium 3.0-0.5 MG/3 ML Neb Soln NEB SCH ×4 (07:11→20:13)
[2017-06-24] MEDS: Sodium Chloride 0.9% 1,000 ML IV SCH (08:19)
[2017-06-24] MEDS ORDERED: Albuterol 8 GM Inhaler INH PRN (09:18)
--- NOTE | 2017-06-24 09:26 | PCM.PN ---
- General Info Date of Service: 06/24/17 Subjective Update: This patient has been stable over the past 24 hours, he was transfused an additional one unit of red blood cells yesterday and since then hemoglobin has remained stable. There is been no further evidence of active bleeding and he denies any symptoms of chest pain or pressure. Vital signs have been good and he has remained afebrile. Functional Status: Reports: Ambulating, Urinating - Review of Systems General: Denies: Fever, Chills Pulmonary: Reports: No Symptoms Cardiovascular: Reports: No Symptoms Gastrointestinal: Reports: No Symptoms. Denies: Hematochezia, Melena, Nausea, Vomiting - Patient Data Vitals - Most Recent: Last Vital Signs Temp 98.7 F 06/24/17 03:00 Pulse 68 06/24/17 07:11 Resp 20 06/24/17 07:00 BP 130/42 L 06/24/17 07:00 Pulse Ox 98 06/24/17 07:00 Weight - Most Recent: 200 lb 9.93 oz I&O - Last 24 Hours: Intake & Output 06/23/17 06/24/17 06/24/17 22:59 06:59 14:59 Intake Total 1267 1012 Output Total 1100 625 275 Balance 167 387 -275 Lab Results Last 24 Hours: Laboratory Results - last 24 hr 06/22/17 06/23/17 06/23/17 Range/Units 20:42 15:30 20:52 WBC (4.5-11.0) K/uL RBC (4.30-5.90) M/uL Hgb 9.5 L 9.5 L (12.0-15.0) g/dL Hct (40.0-54.0) % MCV (80-98) fL MCH (27-31) pg MCHC (32-36) % Plt Count (150-400) K/uL Neut % (Auto) (36-66) % Lymph % (Auto) (24-44) % Turner % (Auto) (2-6) % Eos % (Auto) (2-4) % Baso % (Auto) (0-1) % Sodium (140-148) mmol/L Potassium (3.6-5.2) mmol/L Chloride (100-108) mmol/L Carbon Dioxide (21-32) mmol/L Anion Gap (5.0-14.0) mmol/L BUN (7-18) mg/dL Creatinine (0.8-1.3) mg/dL Est Cr Clr Drug Dosing mL/min Estimated GFR (MDRD) (>60) Glucose (74-106) mg/dL Calcium (8.5-10.1) mg/dL Blood Type A POSITIVE Gel Antibody Screen Negative Crossmatch See Detail 06/24/17 06/24/17 Range/Units 05:00 05:00 WBC 6.9 (4.5-11.0) K/uL RBC 3.30 L (4.30-5.90) M/uL Hgb 9.5 L (12.0-15.0) g/dL Hct 29.3 L (40.0-54.0) % MCV 89 (80-98) fL MCH 29 (27-31) pg MCHC 32 (32-36) % Plt Count 196 (150-400) K/uL Neut % (Auto) 67 H (36-66) % Lymph % (Auto) 15 L (24-44) % Turner % (Auto) 12 H (2-6) % Eos % (Auto) 6 H (2-4) % Baso % (Auto) 0 (0-1) % Sodium 143 (140-148) mmol/L Potassium 3.7 (3.6-5.2) mmol/L Chloride 109 H (100-108) mmol/L Carbon Dioxide 28 (21-32) mmol/L Anion Gap 9.7 (5.0-14.0) mmol/L BUN 19 H (7-18) mg/dL Creatinine 1.0 (0.8-1.3) mg/dL Est Cr Clr Drug Dosing 66.66 mL/min Estimated GFR (MDRD) > 60 (>60) Glucose 89 (74-106) mg/dL Calcium 8.5 (8.5-10.1) mg/dL Blood Type Gel Antibody Screen Crossmatch Med Orders - Current: Current Medications Acetaminophen (Tylenol) 650 mg PO Q4H PRN PRN Reason: Pain (Mild 1-3)/fever Albuterol (Proventil Neb Soln) 2.5 mg NEB Q4H PRN PRN Reason: Shortness Of Breath/wheezing Albuterol (Ventolin Hfa) gm INH Q4H PRN PRN Reason: Dyspnea Albuterol/Ipratropium (Duoneb 3.0-0.5 Mg/3 Ml) 3 ml NEB QIDRT [facility] Last Admin: 06/24/17 07:11 Dose: 3 ml Atorvastatin Calcium (Lipitor) 40 mg PO BEDTIME [facility] Last Admin: 06/23/17 20:18 Dose: 40 mg Betamethasone Dipropionate (Diprolene Af 0.05% Crm) 0 gm TOP DAILY PRN PRN Reason: Itching Pantoprazole Sodium 80 mg/ (Sodium Chloride) 100 mls @ 10 mls/hr IV .Q10H [facility] Last Admin: 06/24/17 05:50 Dose: 10 mls/hr Sodium Chloride (Normal Saline) 1,000 mls @ 75 mls/hr IV ASDIRECTED [facility] Last Admin: 06/24/17 08:19 Dose: 75 mls/hr Lorazepam (Ativan) 1 mg IV Q6H PRN PRN Reason: Nausea/Vomiting Magnesium Oxide (Magnesium Oxide) 400 mg PO DAILY [facility] Last Admin: 06/23/17 09:28 Dose: 400 mg Metoprolol Tartrate (Lopressor) 25 mg PO BID [facility] Last Admin: 06/23/17 20:18 Dose: 25 mg Morphine Sulfate (Morphine) 2 mg IVPUSH Q2H PRN PRN Reason: Pain (severe 7-10) Nitroglycerin (Nitrostat) 0.4 mg SL ASDIRECTED PRN PRN Reason: Chest Pain Ondansetron HCl (Zofran Odt) 4 mg PO Q6H PRN PRN Reason: Nausea able to take PO Ondansetron HCl (Zofran) 4 mg IV Q4H PRN PRN Reason: Nausea/Vomiting Oxycodone HCl (Oxycodone) 5 mg PO Q4H PRN PRN Reason: Pain (moderate 4-6) Regadenoson (Lexiscan) 0.4 mg IVPUSH ONETIME ONE Stop: 06/24/17 12:01 Triamterene/HCTZ (Maxzide 25-37.5 Mg) 1 each PO DAILY [facility] Last Admin: 06/23/17 09:28 Dose: 1 each Zolpidem Tartrate (Ambien) 5 mg PO BEDTIME PRN PRN Reason: Sleep Last Admin: 06/23/17 22:49 Dose: 5 mg Discontinued Medications Aspirin (Aspirin) 324 mg PO ONETIME ONE Stop: 06/22/17 17:17 Last Admin: 06/22/17 18:30 Dose: 324 mg Atorvastatin Calcium (Lipitor) 40 mg PO ONETIME [facility] Betamethasone Dipropionate (Diprolene Af 0.05% Crm) 0 gm TOP DAILY PRN PRN Reason: Itching Sodium Chloride (Normal Saline) 1,000 mls @ 125 mls/hr IV ASDIRECTED [facility] Last Admin: 06/23/17 07:52 Dose: 125 mls/hr Sodium Chloride (Normal Saline) 1,000 mls @ 100 mls/hr IV ASDIRECTED [facility] Pantoprazole Sodium (Protonix) 40 mg PO DAILY [facility] Last Admin: 06/22/17 22:07 Dose: 40 mg Pantoprazole Sodium (Protonix) 40 mg PO ACBREAKFAST [facility] Last Admin: 06/23/17 09:29 Dose: 40 mg Pantoprazole Sodium (Protonix Iv) 40 mg IVPUSH ONETIME ONE Stop: 06/23/17 10:01 Last Admin: 06/23/17 10:17 Dose: 40 mg - Exam Quality Assessment: DVT Prophylaxis General: Alert, Oriented, Cooperative, No Acute Distress Lungs: Clear to Auscultation, Normal Respiratory Effort Cardiovascular: Regular Rate, Regular Rhythm, No Murmurs GI/Abdominal Exam: Normal Bowel Sounds, Soft, Non-Tender, No Organomegaly, No Distention Extremities: Non-Tender, No Pedal Edema Skin: Warm, Dry, Intact - Problem List Review Problem List Initiated/Reviewed/Updated: Yes - My Orders Last 24 Hours: My Active Orders 06/23/17 09:47 Transfuse Red Blood Cells [COMM] Urgent 06/23/17 10:00 Sodium Chloride 0.9% [Normal Saline] 1,000 ml IV ASDIRECTED Sodium Chloride 0.9% [Normal Saline] 100 ml Pantoprazole [ProTONIX IV] 80 mg IV 10 mls/hr 06/24/17 08:00 Myocardial Perf Spect Multi [NM] Urgent 06/24/17 09:18 Albuterol [Ventolin HFA] 2 puff INH Q4H PRN 06/24/17 12:00 Regadenoson [Lexiscan] 0.4 mg IVPUSH ONETIME ONE 06/24/17 17:00 HGB [HEMOGLOBIN] [HEME] Routine 06/25/17 05:00 BASIC METABOLIC PANEL,BMP [CHEM] Timed CBC WITH AUTO DIFF [HEME] Timed - Plan Plan:: ASSESSMENT AND PLAN GI BLEED- no further evidence of bleeding since yesterday, hemoglobin has remained stable -hold all blood thinners and anticoagulants -IV Fluids NS at 75 mL per hour -I & O, monitor stools for active bleeding -Advise to notify nurses of any chest pain or other symptoms -Serial hemoglobin levels -Consult to Surgery for GI bleed, plan for upper and lower endoscopy tomorrow Atypical Chest pain -history of Atrial Fib/flutter -correct anemia -Cardiolyte stress test today -Telemetry -Advise to notify nurses of any chest pain or other symptoms COPD -Duonebs every 6 hours scheduled -Albuterol nebs every 4 hours prn -Robituss AC 10 ml every 4 hours prn cough Muscle cramps -Magnesium 400 mg po tonight Maintenance issues -Orders home meds: hold -Nutrition: regular diet -Mooney catheter not indicated at this time -DVT: SCD -PPI; PO Protonix 40mg daily -consult PT for strengthening. -consult Spiritual CODE STATUS: FULL CODE Admission status: Admit to ICU Med-Surg overflow Admission justification. This patient will be admitted for inpatient services and is medically appropriate meeting medical necessity for inpatient admission as outlined in my documentation. I reasonably expect the patient will require inpatient services that span. Time over 2 midnights. I reasonably expect this patient to be discharged or transferred within 96 hours after admission to the critical access hospital. Disposition; home Primary care provider: Dr. Vladimir Lemons Hospitalist: Dr. Negron
[2017-06-24] MEDS ORDERED: Bisacodyl 5 MG Tab PO ONE ×2 (12:45→20:00)
[2017-06-24] MEDS: Magnesium Oxide 400 MG Tab PO SCH (13:22)
[2017-06-24] MEDS: Hydrochlorothiazide/Triamterene 25-37.5 Tab PO SCH (13:22)
--- NOTE | 2017-06-24 13:56 | NM ---
Myocardial Perf Spect Multi INDICATION: chest pain COMPARISON: None. TECHNIQUE: [employer]an nuclear medicine Cardiolite scan was performed utilizing 33.0 millicuries uptake technetium 99m sestamibi at stress and 10.3 millicuries of technetium 99m at rest. FINDINGS: The left ventricular myocardium demonstrates homogeneous radiotracer uptake. Wall motion st udies are within normal limits. Calculated left ventricular ejection fraction measures 65% at stress and 71% at rest. IMPRESSION: 1. Normal Cardiolite study.
[2017-06-24] MEDS: Polyethylene Glycol 3350 Powder 238 GM Bot PO ONE ×2 (14:47→17:11)
[2017-06-24] MEDS ORDERED: Diltiazem 25 MG/5 ML SDV IVPUSH ONE (15:48)
[2017-06-24] MEDS: Metoprolol Tartrate 25 MG Tab PO SCH ×2 (15:51→20:12)
[2017-06-24] MEDS ORDERED: Diltiazem 100 MG in Sodium Chloride 0.9% 100 ML IV SCH (16:00)
[2017-06-24] MEDS: Pantoprazole 40 MG Vial IVPUSH SCH (17:11)
[2017-06-24] MEDS: atorvaSTATin 20 MG Tab PO SCH (20:13)
[2017-06-25] MEDS ORDERED: Sodium Chloride 0.9% 1,000 ML IV SCH ×3 (00:01→00:05)
[2017-06-25] MEDS: Pantoprazole 40 MG Vial IVPUSH SCH (04:09)
[2017-06-25] MEDS: Albuterol/Ipratropium 3.0-0.5 MG/3 ML Neb Soln NEB SCH ×3 (07:06→14:36)
--- NOTE | 2017-06-25 07:30 | STRESS ---
DATE OF SERVICE: 06/24/2017 PROCEDURE: Lexiscan Cardiolite study. INDICATIONS: Mr. Solano was infused with usual dose of Lexiscan and then received the Cardiolite injection. He did develop symptoms of shortness of breath and chest heaviness. These symptoms resolved spontaneously and he did not require reversal. Resting ECG, sinus rhythm, rate of 70, normal axis and intervals, otherwise normal appearing EKG. There were no significant changes noted on the post hyperventilation or standing ECGs. There were no significant ST-segment changes, T-wave abnormalities seen with Lexiscan infusion or during the post infusion. No significant dysrhythmias were noted during the monitoring. He did report symptoms as noted above. IMPRESSION: Unremarkable Lexiscan portion of the Lexiscan Cardiolite study. Interpretation of the Cardiolite portion of the study is pending at this time. Danny Negron MD /[id number]
[2017-06-25] MEDS ORDERED: fentaNYL 100 MCG/2 ML SDV ONE (09:06)
[2017-06-25] MEDS ORDERED: Propofol 200 MG/20 ML SDV ONE (09:06)
[2017-06-25] MEDS: Magnesium Oxide 400 MG Tab PO SCH (10:14)
[2017-06-25] MEDS: Hydrochlorothiazide/Triamterene 25-37.5 Tab PO SCH (10:14)
[2017-06-25] MEDS: Metoprolol Tartrate 25 MG Tab PO SCH (10:15)
[2017-06-25 12:37] VITALS: BP 141/71
--- NOTE | 2017-06-25 12:44 | OR ---
DATE OF PROCEDURE: 06/25/2017 PROCEDURES: 1. Esophagogastroduodenoscopy. 2. Colonoscopy. FINDINGS: 1. Diverticulosis, mild. 2. Inflammation at GE junction consistent with reflux disease or healing esophageal ulcer. 3. No evidence of old or new blood. COMPLICATIONS: None. LAST DIPPER: None. PREOPERATIVE DIAGNOSIS: Gastrointestinal bleeding. POSTOPERATIVE DIAGNOSIS: Gastrointestinal bleeding. RISKS: Risks, benefits, alternatives, limitations including, but not limited to infection, bleeding, and perforation explained to the patient and wished to proceed. PROCEDURE IN DETAIL: The patient was placed in the left lateral decubitus position. The EGD scope was introduced and advanced atraumatically to the second part of the duodenum. No abnormalities noted in the duodenum or in the antrum itself. A small hiatal hernia. At the GE junction, there was inflammation consistent with reflux disease or a very well healed esophageal ulcer. This was biopsied in all 4 quadrants. The esophagus was normal. Digital rectal exam was performed showing small external hemorrhoids. The scope was introduced and advanced atraumatically to the ileocecal valve. A photo was taken. The scope was brought back to the ascending, transverse, descending colon, and retroflexed. The patient did have diverticulosis, which would be described as mild, not bleeding, and no evidence of diverticulitis. The patient tolerated the procedure well. Rahat Almeida MD /[id number]
--- NOTE | 2017-06-25 14:45 | PCM.DCSUM1 ---
Discharge Summary - Hospital Course Brief History: This patient is a 76-year-old gentleman who is admitted through the emergency department with weakness, and chest pain secondary to severe anemia. - Discharge Data Discharge Date: 06/25/17 Discharge Disposition: Home, Self-Care 01 Condition: Stable - Discharge Diagnosis/Problem(s) (1) Atrial fibrillation with rapid ventricular response SNOMED Code(s): 477665145378589 ICD Code: I48.91 - UNSPECIFIED ATRIAL FIBRILLATION Status: Acute Current Visit: Yes (2) Chest pain SNOMED Code(s): 01844377 ICD Code: R07.9 - CHEST PAIN, UNSPECIFIED Status: Acute Current Visit: Yes (3) Blood loss anemia SNOMED Code(s): 100221501 ICD Code: D50.0 - IRON DEFICIENCY ANEMIA SECONDARY TO BLOOD LOSS (CHRONIC) Status: Acute Priority: High Current Visit: Yes (4) GI bleed SNOMED Code(s): 74990141 ICD Code: K92.2 - GASTROINTESTINAL HEMORRHAGE, UNSPECIFIED Status: Acute Current Visit: Yes Qualifiers: GI bleed type/associated pathology: unspecified gastrointestinal hemorrhage type Qualified Code(s): K92.2 - Gastrointestinal hemorrhage, unspecified (5) COPD (chronic obstructive pulmonary disease) SNOMED Code(s): 43158607 ICD Code: J44.9 - CHRONIC OBSTRUCTIVE PULMONARY DISEASE, UNSPECIFIED Status : Chronic Current Visit: Yes Qualifiers: COPD type: unspecified COPD Qualified Code(s): J44.9 - Chronic obstructive pulmonary disease, unspecified - Patient Summary/Data Consults: Consultations 06/22/17 20:29 Consult to Physician [CONS] Routine Consulting Provider: Rahat Almeida Call Completed to Consulting Physician: Yes: consult for rectal bleeding Reason for Consult: colonscopy and upper GI Person Notified: Dr. Almeida Date Notified: 06/22/17 Time Notified: 19:19 Special Instructions: Consult to Spiritual Care [CONS] Routine Spiritual Care Reason for Consult: New Diagnosis Special Instructions: request prayer OT Evaluation and Treatment [CONS] Routine Please Evaluate and Treat. OT Reason for Consult: Discharge Planning This query below is only for informational purposes and is not editable. Hospital Course: This patient had developed symptoms of weakness and chest pain prior to admission. He also had noted a two-week history of melenic/maroon-appearing stool. He has been on oral anticoagulation with Xarelto because of his history of paroxysmal atrial fibrillation. Because of symptoms of chest pain EKG and troponin level were obtained in the emergency department and within normal range showing no acute abnormalities. He was admitted to the hospital and given IV fluids for hydration as well as IV Protonix. Serial troponin levels were obtained after admission and remained within normal range. On admission he was transfused 1 unit of red blood cells despite a hemoglobin of 8.3, because of his symptoms of chest pain and known history of coronary artery disease. Following morning his hemoglobin and increased 8.7 and he was transfused 1 additional unit of red blood cells. After this his hemoglobin remained stable in the range of 9.5 through the rest of the hospital stay. There was no further evidence of active bleeding. Cezar scan Cardiolite study was obtained and was interpreted as normal showing no evidence of ischemia or infarct. Surgical consult was obtained from Dr. Almeida and prior to discharge EGD and colonoscopy were performed. He was noted to have evidence of mild esophagitis and gastritis but not enough to explain his recent bleeding. Colonoscopy showed no significant abnormalities other than diverticulosis. It was assumed that he had likely experienced a diverticular bleed. Xarelto had been held at the time of admission and will be held for one additional week at which time he will resume the medication. Hospital course was complicated by atrial fibrillation with rapid ventricular response, he was given IV diltiazem bolus and placed on a continuous infusion of diltiazem until he converted to sinus rhythm. He had no further evidence of atrial fibrillation during the hospital stay. By the time of discharge he was feeling well and had experienced no symptoms of chest pain or pressure during hospitalization. Activity will be as tolerated and he will be on a soft low residue diet for 2 weeks. Follow-up appointment will be scheduled with his primary care provider Dr. Acevedo, hemoglobin level should be obtained at the time of follow-up appointment. - Patient Instructions Diet: GI Soft/Low Residue/Low Fiber Activity: As Tolerated Other/Special Instructions: Hold Xarelto or one week and then resume the medication. Schedule follow-up appointment with Dr. Acevedo within one week, hemoglobin level should be obtained at the time of follow-up appointment. - Discharge Plan Home Medications: Home Meds Betamethasone Dipropionate [Diprosone 0.05% Crm] 1 applic TOP DAILY PRN [History] HCTZ/Triamterene [Maxzide 25-37.5 MG] 1 tab PO DAILY 08/11/14 [History] Metoprolol Tartrate 25 mg PO BID #60 tablet 08/30/14 [Rx] Nitroglycerin [Nitrostat] 0.4 mg SL ASDIRECTED PRN #30 tab.subl 08/30/14 [Rx] Albuterol [Ventolin HFA] 2 puff INH Q6H 06/30/16 [History] Aspirin [Low Dose Aspirin EC] 81 mg PO DAILY 06/30/16 [History] Chondroitin/Glucosamine [Glucosamine-Chondroitin] 1 cap PO DAILY 06/30/16 [ History] Fish Oil/[place]-3 Fatty Acids [Fish Oil 1,000 MG] 1 tab PO DAILY 06/30/16 [ History] Multivitamin [Multi-Day Vitamins] 1 tab PO DAILY 06/30/16 [History] atorvaSTATin [Lipitor] 40 mg PO ONETIME 06/30/16 [History] Referrals: Barbara Acevedo MD [Primary Care Provider] - - Patient Data Vitals - Most Recent: Last Vital Signs Temp 97.4 F 06/25/17 12:00 Pulse 76 06/25/17 12:00 Resp 20 06/25/17 12:00 BP 141/71 H 06/25/17 12:00 Pulse Ox 93 L 06/25/17 12:00 Weight - Most Recent: 200 lb 9.93 oz I&O - Last 24 hours: Intake & Output 06/24/17 06/25/17 06/25/17 22:59 06:59 14:59 Intake Total 2459 450 Output Total 1850 150 Balance 609 -150 450 Lab Results - Last 24 hrs: Laboratory Results - last 24 hr 06/24/17 06/25/17 06/25/17 Range/Units 17:00 05:45 05:45 WBC 6.9 (4.5-11.0) K/uL RBC 3.40 L (4.30-5.90) M/uL Hgb 10.9 L 9.6 L (12.0-15.0) g/dL Hct 30.3 L (40.0-54.0) % MCV 89 (80-98) fL MCH 28 (27-31) pg MCHC 32 (32-36) % Plt Count 194 (150-400) K/uL Neut % (Auto) 60 (36-66) % Lymph % (Auto) 16 L (24-44) % [place] % (Auto) 15 H (2-6) % Eos % (Auto) 9 H (2-4) % Baso % (Auto) 0 (0-1) % Sodium 144 (140-148) mmol/L Potassium 3.7 (3.6-5.2) mmol/L Chloride 110 H (100-108) mmol/L Carbon Dioxide 28 (21-32) mmol/L Anion Gap 9.7 (5.0-14.0) mmol/L BUN 16 (7-18) mg/dL Creatinine 1.1 (0.8-1.3) mg/dL Est Cr Clr Drug Dosing 60.60 mL/min Estimated GFR (MDRD) > 60 (>60) Glucose 100 (74-106) mg/dL Calcium 8.7 (8.5-10.1) mg/dL Med Orders - Current: Current Medications Acetaminophen (Tylenol) 650 mg PO Q4H PRN PRN Reason: Pain (Mild 1-3)/fever Albuterol (Proventil Neb Soln) 2.5 mg NEB Q4H PRN PRN Reason: Shortness Of Breath/wheezing Albuterol (Ventolin Hfa) 0 gm INH Q4H PRN PRN Reason: Dyspnea Albuterol/Ipratropium (Duoneb 3.0-0.5 Mg/3 Ml) 3 ml NEB QIDRT [facility] Last Admin: 06/25/17 14:36 Dose: 3 ml Atorvastatin Calcium (Lipitor) 40 mg PO BEDTIME [facility] Last Admin: 06/24/17 20:13 Dose: 40 mg Betamethasone Dipropionate (Diprolene Af 0.05% Crm) 0 gm TOP DAILY PRN PRN Reason: Itching Lorazepam (Ativan) 1 mg IV Q6H PRN PRN Reason: Nausea/Vomiting Magnesium Oxide (Magnesium Oxide) 400 mg PO DAILY [facility] Last Admin: 06/25/17 10:14 Dose: 400 mg Metoprolol Tartrate (Lopressor) 25 mg PO BID [facility] Last Admin: 06/25/17 10:15 Dose: 25 mg Morphine Sulfate (Morphine) 2 mg IVPUSH Q2H PRN PRN Reason: Pain (severe 7-10) Nitroglycerin (Nitrostat) 0.4 mg SL ASDIRECTED PRN PRN Reason: Chest Pain Ondansetron HCl (Zofran Odt) 4 mg PO Q6H PRN PRN Reason: Nausea able to take PO Ondansetron HCl (Zofran) 4 mg IV Q4H PRN PRN Reason: Nausea/Vomiting Oxycodone HCl (Oxycodone) 5 mg PO Q4H PRN PRN Reason: Pain (moderate 4-6) Pantoprazole Sodium (Protonix Iv) 40 mg IVPUSH Q12H [facility] Last Admin: 06/25/17 04:09 Dose: 40 mg Sodium Chloride (Saline Flush) 10 ml FLUSH DAILY [facility] Triamterene/HCTZ (Maxzide 25-37.5 Mg) 1 each PO DAILY [facility] Last Admin: 06/25/17 10:14 Dose: 1 each Zolpidem Tartrate (Ambien) 5 mg PO BEDTIME PRN PRN Reason: Sleep Last Admin: 06/23/17 22:49 Dose: 5 mg Discontinued Medications Aspirin (Aspirin) 324 mg PO ONETIME ONE Stop: 06/22/17 17:17 Last Admin: 06/22/17 18:30 Dose: 324 mg Atorvastatin Calcium (Lipitor) 40 mg PO ONETIME [facility] Betamethasone Dipropionate (Diprolene Af 0.05% Crm) 0 gm TOP DAILY PRN PRN Reason: Itching Bisacodyl (Dulcolax) 10 mg PO ONETIME ONE Stop: 06/24/17 12:46 Last Admin: 06/24/17 13:21 Dose: 10 mg Bisacodyl (Dulcolax) 10 mg PO ONETIME ONE Stop: 06/24/17 20:01 Last Admin: 06/24/17 20:11 Dose: 10 mg Diltiazem HCl (Diltiazem) 20 mg IVPUSH ONETIME ONE Stop: 06/24/17 15:49 Last Admin: 06/24/17 15:53 Dose: 20 mg Fentanyl (Sublimaze) Confirm Administered Dose 100 mcg .ROUTE .STK-MED ONE Stop: 06/25/17 09:07 Sodium Chloride (Normal Saline) 1,000 mls @ 125 mls/hr IV ASDIRECTED [facility] Last Admin: 06/23/17 07:52 Dose: 125 mls/hr Pantoprazole Sodium 80 mg/ (Sodium Chloride) 100 mls @ 10 mls/hr IV .Q10H [facility] Last Admin: 06/24/17 05:50 Dose: 10 mls/hr Sodium Chloride (Normal Saline) 1,000 mls @ 100 mls/hr IV ASDIRECTED [facility] Sodium Chloride (Normal Saline) 1,000 mls @ 75 mls/hr IV ASDIRECTED [facility] Last Admin: 06/24/17 08:19 Dose: 75 mls/hr Sodium Chloride (Normal Saline) 1,000 mls @ 125 mls/hr IV ASDIRECTED [facility] Sodium Chloride (Normal Saline) 1,000 mls @ 100 mls/hr IV ASDIRECTED [facility] Diltiazem HCl 100 mg/ Sodium (Chloride) 100 mls @ 5 mls/hr IV TITRATE [facility]; 5 MG /HR PRN Reason: Protocol Last Admin: 06/24/17 15:58 Dose: 5 mg/hr, 5 mls/hr Sodium Chloride (Normal Saline) 1,000 mls @ 125 mls/hr IV ASDIRECTED [facility] Last Admin: 06/25/17 04:21 Dose: 125 mls/hr Pantoprazole Sodium (Protonix) 40 mg PO DAILY [facility] Last Admin: 06/22/17 22:07 Dose: 40 mg Pantoprazole Sodium (Protonix) 40 mg PO ACBREAKFAST [facility] Last Admin: 06/23/17 09:29 Dose: 40 mg Pantoprazole Sodium (Protonix Iv) 40 mg IVPUSH ONETIME ONE Stop: 06/23/17 10:01 Last Admin: 06/23/17 10:17 Dose: 40 mg Polyethylene Glycol (Miralax) 238 gm PO ONETIME ONE Stop: 06/24/17 17:01 Last Admin: 06/24/17 17:11 Dose: Not Given Propofol (Diprivan 20 Ml) Confirm Administered Dose 200 mg .ROUTE .STK-MED ONE Stop: 06/25/17 09:07 Regadenoson (Lexiscan) 0.4 mg IVPUSH ONETIME ONE Stop: 06/24/17 12:01 Last Admin: 06/24/17 12:09 Dose: 0.4 mg *Q Meaningful Use (DIS) - VTE *Q VTE Criteria *Q: - Stroke *Q Stroke Criteria *Q: - AMI *Q AMI Criteria *Q:
[2017-06-26] MEDS ORDERED: Sodium Chloride 0.9% 10 ML Syringe FLUSH SCH (09:00)
== END 2017-06-25 16:34 | disposition home or self-care (01) | DRG 379 ==
LOC: JP.ED 16:34 → JP.ICU 19:43
PROVIDERS: ADMIT Hospitalist; ATTEND Hospitalist
PROC: 30233N1 Transfusion of Nonautologous Red Blood Cells into Peripheral Vein, Percutaneous Approach (ICD-10-PCS; principal; 2017-06-22)
PROC: 30233N1 Transfusion of Nonautologous Red Blood Cells into Peripheral Vein, Percutaneous Approach (ICD-10-PCS; 2017-06-23)
PROC: 4A02XM4 Measurement of Cardiac Total Activity, External Approach (ICD-10-PCS; 2017-06-24)
PROC: 3E073KZ Introduction of Other Diagnostic Substance into Coronary Artery, Percutaneous Approach (ICD-10-PCS; 2017-06-24)
PROC: 0DB48ZX Excision of Esophagogastric Junction, Via Natural or Artificial Opening Endoscopic, Diagnostic (ICD-10-PCS; 2017-06-25)
PROC: 0DJD8ZZ Inspection of Lower Intestinal Tract, Via Natural or Artificial Opening Endoscopic (ICD-10-PCS; 2017-06-25)
DX: K92.2 Gastrointestinal hemorrhage, unspecified (principal); K57.91 Diverticulosis of intestine, part unspecified, without perforation or abscess with bleeding; D50.0 Iron deficiency anemia secondary to blood loss (chronic); R07.89 Other chest pain; I10 Essential (primary) hypertension; I25.10 Atherosclerotic heart disease of native coronary artery without angina pectoris; I48.0 Paroxysmal atrial fibrillation; J44.9 Chronic obstructive pulmonary disease, unspecified; Z87.891 Personal history of nicotine dependence; R53.1 Weakness; R25.2 Cramp and spasm; Z79.01 Long term (current) use of anticoagulants; E78.00 Pure hypercholesterolemia, unspecified; H54.7 Unspecified visual loss; Z95.5 Presence of coronary angioplasty implant and graft; Z79.82 Long term (current) use of aspirin
CPT/HCPCS: 36415; 80053; 82272; 84484; 85025; 93005; 93010; 99285; A9270; 36430; 78452; 78452-26; 80048; 83735; 85018; 85610; 86850; 86900; 86901; 86920; 86922; 88305; 93018; 94640; 94762; A9500; C9113; J2704; J2785; J3010; J3490; J7030; J7040; J7620; P9016

== ENCOUNTER 2018-10-31 12:06 | Emergency (ER) | payer MEDICARE, BC ==
[2018-10-31 12:22] VITALS: BP 139/63
--- NOTE | 2018-10-31 13:23 | EDM.PDOC ---
<Caridad Wiley - Last Filed: 10/31/18 15:10> ED HPI GENERAL MEDICAL PROBLEM - General Chief Complaint: Lower Extremity Injury/Pain Stated Complaint: PAIN IN LEFT KNEE Time Seen by Provider: 10/31/18 13:05 Source of Information: Reports: Patient History Limitations: Reports: No Limitations - History of Present Illness INITIAL COMMENTS - FREE TEXT/NARRATIVE: Renato Solano is a 78 year old male who presents to the ED with concerns of knee pain. He states he was carrying wood from his garage into his house 4 days ago and tripped. He states he has been walking on it and can bear weight. He states the pain is about a 4/10. He states the pain is right on top of his patellar region. He has been walking on it without assistance. He states his hip and ankle are okay and he did not injury anything else. He denies any past history lower extremity fractures. - Related Data Allergies Allergy/AdvReac Type Severity Reaction Status Date / Time No Known Allergies Allergy Verified 06/22/17 16:52 Home Meds: Home Meds Betamethasone Dipropionate [Diprosone 0.05% Crm] 1 applic TOP DAILY PRN [History] HCTZ/Triamterene [Maxzide 25-37.5 MG] 1 tab PO DAILY 08/11/14 [History] Metoprolol Tartrate 25 mg PO BID #60 tablet 08/30/14 [Rx] Nitroglycerin [Nitrostat] 0.4 mg SL ASDIRECTED PRN #30 tab.subl 08/30/14 [Rx] Albuterol [Ventolin HFA] 2 puff INH Q6H 06/30/16 [History] Aspirin [Low Dose Aspirin EC] 81 mg PO DAILY 06/30/16 [History] Chondroitin/Glucosamine [Glucosamine-Chondroitin] 1 cap PO DAILY 06/30/16 [ History] Fish Oil/[place]-3 Fatty Acids [Fish Oil 1,000 MG] 1 tab PO DAILY 06/30/16 [ History] Multivitamin [Multi-Day Vitamins] 1 tab PO DAILY 06/30/16 [History] atorvaSTATin [Lipitor] 40 mg PO ONETIME 06/30/16 [History] Past Medical History HEENT History: Reports: Impaired Vision Other HEENT History: history of broken nose Cardiovascular History: Reports: Afib, CAD, High Cholesterol, Hypertension Respiratory History: Reports: COPD Other Respiratory History: sinus congestion Musculoskeletal History: Reports: Fracture Neurological History: Reports: Concussion, Head Trauma Hematologic History: Reports: Blood Transfusion(s) Dermatologic History: Reports: Other (See Below) Other Dermatologic History: Rash - Infectious Disease History Infectious Disease History: Reports: Chicken Pox - Past Surgical History HEENT Surgical History: Reports: Cataract Surgery Cardiovascular Surgical History: Reports: Coronary Artery Stent GI Surgical History: Reports: Colonoscopy Social & Family History - Tobacco Use Smoking Status *Q: Former Smoker Years of Tobacco use: 30 Packs/Tins Daily: 1 Used Tobacco, but Quit: Yes Month/Year Tobacco Last Used: 1989 Second Hand Smoke Exposure: No - Caffeine Use Caffeine Use: Reports: Coffee Other Caffeine Use: 3 cups per day - Recreational Drug Use Recreational Drug Use: No - Living Situation & Occupation Living situation: Reports: Occupation: Retired Review of Systems - Review of Systems Review Of Systems: ROS reveals no pertinent complaints other than HPI. ED EXAM, GENERAL - Physical Exam Exam: See Below Free Text/Narrative:: MSK: Right knee is normal. Left knee is positive for swelling and marked ecchymosis around the patellar area of the right knee. There is mild ecchymosis that extends down lateral aspect of left knee, mid to proximal aspect fibula. No tenderness upon palpation of fibula and tibia. There is mild tenderness to palpation over the patella. No tenderness upon palpation of the joint space. Negative Olivia's, Ramón, Anterior and Posterior drawer. Sensation is intact. DP pulses are +2. Exam Limited By: No Limitations General Appearance: Alert, WD/WN, No Apparent Distress Ears: Normal External Exam Nose: Normal Inspection Throat/Mouth: Normal Inspection, Normal Lips, Normal Teeth Head: Atraumatic, Normocephalic Neck: Normal Inspection, Supple, Non-Tender Respiratory/Chest: No Respiratory Distress Cardiovascular: No Edema Neurological: Alert, Oriented, Normal Cognition, No Motor/Sensory Deficits Psychiatric: Normal Affect, Normal Mood Skin Exam: Warm, Intact Course - Vital Signs Last Recorded V/S: Last Vital Signs Temp 95.9 F 10/31/18 12:53 Pulse 61 10/31/18 12:53 Resp 16 10/31/18 12:53 BP 139/63 10/31/18 12:53 Pulse Ox 100 10/31/18 12:53 Departure - Departure Disposition: Home, Self-Care 01 Clinical Impression: Knee contusion Qualifiers: Encounter type: initial encounter Laterality: left Qualified Code(s): S80.02XA - Contusion of left knee, initial encounter - Discharge Information Referrals: Barbara Acevedo MD [Primary Care Provider] - Forms: ED Department Discharge Additional Instructions: Follow-up with your primary care as needed, use Tylenol Motrin for pain control , call return to the emergency department worsening of symptoms <Adal Marquez - Last Filed: 10/31/18 15:32> ED EXAM, GENERAL - Physical Exam Free Text/Narrative:: Agree with exam Departure - Departure Time of Disposition: 15:30 Condition: Fair - Assessment/Plan Plan: Assessment Acuity = acute Site and laterality = left knee contusion Etiology = secondary to a fall Manifestations = none Location of injury = Home Lab values = x-rays reveal no fracture Plan Follow-up with primary care orthopedics as needed Tylenol Motrin as needed for pain Adal Christianson MD was personally available for consultation in the ED. I have reviewed the chart and agree with the documentation as recorded by the PALMIRA Birch, including the assessment, treatment plan and disposition. Adal Christianson MD personally saw and examined the patient. I have reviewed and agree with the PA Student's findings. This note was dictated using [employer] voice recognition software please call with any questions on syntax or grammar.
--- NOTE | 2018-10-31 14:42 | CRLCR ---
INDICATION: Pain after trauma COMPARISON: None available. FINDINGS: The left knee was examined with AP and lateral views for a total of two views. There is no sign of fracture or dislocation. The medial and lateral compartments are normal in height. There is no sign of a joint effusion. There is moderate prepatellar soft tissue swelling with no sign of radiopaque foreign body or gas in the soft tissues. There are moderate superior and inferior anterior patellar osteophytes at the insertions of the quadriceps and patellar tendons. IMPRESSION: No sign of acute osseous injury. No sign of joint effusion. Moderate prepatellar soft tissue swelling. Dictated by Orion Garcia MD @ Oct 31 2018 2:38PM Signed by Dr. Orion Garcia @ Oct 31 2018 2:39PM
--- NOTE | 2018-10-31 14:46 | CRLCR ---
INDICATION: Fall. Pain. FINDINGS: Four views of the left tibia-fibula show no evidence of acute fracture or dislocation. No other bony or soft tissue abnormalities identified. Dictated by Todd Reynolds MD @ 10/31/2018 2:45:42 PM Dictated by: Todd Reynolds MD @ 10/31/2018 14:45:47 (Electronically Signed)
== END 2018-10-31 15:43 | disposition home or self-care (01) ==
LOC: JP.ED 12:06
DX: S80.02XA Contusion of left knee, initial encounter (principal); I25.10 Atherosclerotic heart disease of native coronary artery without angina pectoris; I10 Essential (primary) hypertension; Z98.49 Cataract extraction status, unspecified eye; Z95.5 Presence of coronary angioplasty implant and graft; Z79.82 Long term (current) use of aspirin; Z87.891 Personal history of nicotine dependence; W01.0XXA Fall on same level from slipping, tripping and stumbling without subsequent striking against object, initial encounter
CPT/HCPCS: 73560-LT; 73590-LT; 99283-25

== ENCOUNTER 2020-12-21 13:46 | Emergency (ER) | payer MEDICARE, BC ==
[2020-12-21 14:12] VITALS: BP 127/53; PULSE 60
--- NOTE | 2020-12-21 14:12 | EDM.PDOC ---
ED HPI GENERAL MEDICAL PROBLEM - General Chief Complaint: Upper Extremity Injury/Pain Stated Complaint: SWOLLEN LEFT HAND/RING Time Seen by Provider: 12/21/20 14:00 Source of Information: Reports: Patient History Limitations: Reports: No Limitations - History of Present Illness INITIAL COMMENTS - FREE TEXT/NARRATIVE: 80-year-old male that has been having a slowly worsening swelling of his left ring finger weeks, now has his wedding ring significantly restricting the base of the finger with distal swelling. No injury. No fevers or chills. He is starting to develop a small amount of bruising under the ring as he is on Coumadin. He is mainly here to get his ring removed. Onset: Gradual Duration: Day(s): (Finger has been slowly worsening and swelling for 2 weeks) Location: Reports: Upper Extremity, Left Quality: Reports: Pressure (Developing pressure on the base of the finger from the ring being too tight) Associated Symptoms: Reports: No Other Symptoms - Related Data Allergies Allergy/AdvReac Type Severity Reaction Status Date / Time No Known Allergies Allergy Verified 12/21/20 14:07 Home Meds: Home Meds Betamethasone Dipropionate [Diprosone 0.05% Crm] 1 applic TOP DAILY PRN 08/11/14 [History] HCTZ/Triamterene [Maxzide 25-37.5 MG] 1 tab PO DAILY 08/11/14 [History] Metoprolol Tartrate 25 mg PO BID #60 tablet 08/30/14 [Rx] Nitroglycerin [Nitrostat] 0.4 mg SL ASDIRECTED PRN #30 tab.subl 08/30/14 [Rx] Albuterol [Ventolin HFA] 2 puff INH Q6H 06/30/16 [History] Aspirin [Low Dose Aspirin EC] 81 mg PO DAILY 06/30/16 [History] Chondroitin/Glucosamine [Glucosamine-Chondroitin] 1 cap PO DAILY 06/30/16 [History] Fish Oil/[place]-3 Fatty Acids [Fish Oil 1,000 MG] 1 tab PO DAILY 06/30/16 [History] Multivitamin [Multi-Day Vitamins] 1 tab PO DAILY 06/30/16 [History] atorvaSTATin [Lipitor] 40 mg PO ONETIME 06/30/16 [History] Past Medical History HEENT History: Reports: Impaired Vision Other HEENT History: history of broken nose Cardiovascular History: Reports: Afib, CAD, High Cholesterol, Hypertension Respiratory History: Reports: COPD Other Respiratory History: sinus congestion Musculoskeletal History: Reports: Fracture Neurological History: Reports: Concussion, Head Trauma Hematologic History: Reports: Blood Transfusion(s) Dermatologic History: Reports: Other (See Below) Other Dermatologic History: Rash - Infectious Disease History Infectious Disease History: Reports: Chicken Pox - Past Surgical History HEENT Surgical History: Reports: Cataract Surgery Cardiovascular Surgical History: Reports: Coronary Artery Stent GI Surgical History: Reports: Colonoscopy Social & Family History - Caffeine Use Caffeine Use: Reports: Coffee Other Caffeine Use: 3 cups per day - Living Situation & Occupation Living situation: Reports: Occupation: Retired Review of Systems - Review of Systems Review Of Systems: See Below Constitutional: Denies: Fever Respiratory: Reports: No Symptoms Cardiovascular: Reports: No Symptoms Skin: Reports: Bruising (Small amount of bruising has developed into the lowering) Neurological: Denies: Paresthesia (Denies paresthesia of the finger) Psychiatric: Reports: No Symptoms ED EXAM, GENERAL - Physical Exam Exam: See Below Exam Limited By: No Limitations General Appearance: Alert, No Apparent Distress Respiratory/Chest: No Respiratory Distress Extremities: Other (Exam is otherwise limited to the left hand. He has some diffuse swelling through the PIP joint of the ring finger, with a tight gold wedding ring around the base of the finger and some underlying bruising.) Neurological: Alert, Oriented Psychiatric: Normal Affect, Normal Mood Skin Exam: Other (Some ecchymosis and bruising is developed into the ring) Course - Vital Signs Last Recorded V/S: Last Vital Signs Temp 96.6 F L 12/21/20 14:11 Pulse 60 12/21/20 14:11 Resp 13 12/21/20 14:11 BP 127/53 L 12/21/20 14:11 Pulse Ox 97 12/21/20 14:11 - Re-Assessments/Exams Free Text/Narrative Re-Assessment/Exam: 12/21/20 14:09 The ring was removed by cutting, releasing the pressure at the base of the finger. This did provide some improvement in the symptoms, he will recheck if the swelling does not improve over the next several days. Departure - Departure Time of Disposition: 14:21 Disposition: Home, Self-Care 01 Clinical Impression: Tight ring on finger - Discharge Information Instructions: Arthritis Referrals: PCP,None [Primary Care Provider] - Forms: ED Department Discharge Care Plan Goals: Cool compresses and elevation of the hand should decrease swelling over the next several days along with anti-inflammatories. Consider rechecking in the next 3 to 5 days if not improving satisfactorily, return sooner if worsening such as redness, fever or red streaks from the hand. Sepsis Event Note (ED) - Focused Exam Vital Signs: Vital Signs Temp Pulse Resp BP Pulse Ox 12/21/20 14:11 96.6 F L 60 13 127/53 L 97
== END 2020-12-21 14:21 | disposition home or self-care (01) ==
LOC: JP.ED 13:46
DX: S60.042A Contusion of left ring finger without damage to nail, initial encounter (principal); I48.91 Unspecified atrial fibrillation; I25.10 Atherosclerotic heart disease of native coronary artery without angina pectoris; E78.00 Pure hypercholesterolemia, unspecified; I10 Essential (primary) hypertension; J44.9 Chronic obstructive pulmonary disease, unspecified; Z79.82 Long term (current) use of aspirin; Z79.899 Other long term (current) drug therapy; W49.04XA Ring or other jewelry causing external constriction, initial encounter
CPT/HCPCS: 99282; 99283

== ENCOUNTER 2021-01-19 09:40 | Emergency (ER) | payer MEDICARE, BC ==
[2021-01-19 11:33] VITALS: BP 142/55; PULSE 100
--- NOTE | 2021-01-19 11:58 | EDM.PDOC ---
ED HPI GENERAL MEDICAL PROBLEM - General Chief Complaint: Fever Stated Complaint: HEADACHE, BODYACHES, FEVER Time Seen by Provider: 01/19/21 11:30 Source of Information: Reports: Patient History Limitations: Reports: No Limitations - History of Present Illness INITIAL COMMENTS - FREE TEXT/NARRATIVE: This is an 80-year-old male present concerns of muscle aches, headache, fatigue. He reports symptoms been ongoing for 2 days now. It started somewhat insidiously. He notes a fever as well, up to 102F. He has no history of prior symptoms in the past. He has no cough or shortness of breath. No abdominal. No urinary symptoms. He denies any tick bites, does recreate outside, but does not think he has been exposed. He is vaccinated for Covid. He has also had a scratch in his left ear. - Related Data Allergies Allergy/AdvReac Type Severity Reaction Status Date / Time No Known Allergies Allergy Verified 01/19/21 11:21 Home Meds: Home Meds Betamethasone Dipropionate [Diprosone 0.05% Crm] 1 applic TOP DAILY PRN 08/11/14 [History] HCTZ/Triamterene [Maxzide 25-37.5 MG] 1 tab PO DAILY 08/11/14 [History] Metoprolol Tartrate 25 mg PO BID #60 tablet 08/30/14 [Rx] Nitroglycerin [Nitrostat] 0.4 mg SL ASDIRECTED PRN #30 tab.subl 08/30/14 [Rx] Albuterol [Ventolin HFA] 2 puff INH Q6H 06/30/16 [History] Aspirin [Low Dose Aspirin EC] 81 mg PO DAILY 06/30/16 [History] Chondroitin/Glucosamine [Glucosamine-Chondroitin] 1 cap PO DAILY 06/30/16 [History] Fish Oil/[place]-3 Fatty Acids [Fish Oil 1,000 MG] 1 tab PO DAILY 06/30/16 [History] Multivitamin [Multi-Day Vitamins] 1 tab PO DAILY 06/30/16 [History] atorvaSTATin [Lipitor] 40 mg PO ONETIME 06/30/16 [History] Past Medical History HEENT History: Reports: Impaired Vision Other HEENT History: history of broken nose Cardiovascular History: Reports: Afib, CAD, High Cholesterol, Hypertension Respiratory History: Reports: COPD Other Respiratory History: sinus congestion Musculoskeletal History: Reports: Fracture Neurological History: Reports: Concussion, Head Trauma Hematologic History: Reports: Blood Transfusion(s) Dermatologic History: Reports: Other (See Below) Other Dermatologic History: Rash - Infectious Disease History Infectious Disease History: Reports: Chicken Pox - Past Surgical History HEENT Surgical History: Reports: Cataract Surgery Other HEENT Surgeries/Procedures: plate in back of head Cardiovascular Surgical History: Reports: Coronary Artery Stent GI Surgical History: Reports: Colonoscopy Social & Family History - Tobacco Use Tobacco Use Status *Q: Never Tobacco User - Caffeine Use Caffeine Use: Reports: Coffee Other Caffeine Use: 3 cups per day - Living Situation & Occupation Living situation: Reports: Occupation: Retired ED ROS GENERAL - Review of Systems Review Of Systems: See Below Constitutional: Reports: Fatigue HEENT: Reports: No Symptoms Respiratory: Reports: No Symptoms Cardiovascular: Reports: No Symptoms Endocrine: Reports: No Symptoms GI/Abdominal: Reports: No Symptoms : Reports: No Symptoms Musculoskeletal: Reports: Muscle Pain Skin: Reports: No Symptoms Neurological: Reports: No Symptoms Psychiatric: Reports: No Symptoms Hematologic/Lymphatic: Reports: No Symptoms Immunologic: Reports: No Symptoms ED EXAM, SEPSIS - Physical Exam Exam: See Below Exam Limited By: No Limitations General Appearance: Alert, No Apparent Distress Ears: Other (Area of excoriation in the left external ear canal, some dried blood.) Nose: Normal Inspection Throat/Mouth: Normal Inspection Head: Atraumatic, Normocephalic Neck: Normal Inspection Respiratory/Chest: Lungs Clear Cardiovascular: Regular Rate, Rhythm GI/Abdominal Exam: Soft, Non-Tender, No Distention Back: Normal Inspection Extremities: Normal Inspection Neurological: Alert, Oriented, Normal Cognition, Normal Gait Psychiatric: Normal Affect, Normal Mood Skin: Warm, Dry Course - Vital Signs Last Recorded V/S: Last Vital Signs Temp 36.8 C 01/19/21 11:31 Pulse 100 01/19/21 11:31 Resp 14 01/19/21 11:31 BP 142/55 H 01/19/21 11:31 Pulse Ox 98 01/19/21 11:31 - Orders/Labs/Meds Labs: Laboratory Tests 01/19/21 01/19/21 01/19/21 Range/Units 11:46 11:46 11:56 WBC (4.5-11.0) K/uL RBC (4.30-5.90) M/uL Hgb (12.0-15.0) g/dL Hct (40.0-54.0) % MCV (80-98) fL MCH (27-31) pg MCHC (32-36) % Plt Count (150-400) K/uL Sodium 140 (140-148) mmol/L Potassium 4.4 (3.6-5.2) mmol/L Chloride 102 (100-108) mmol/L Carbon Dioxide 29 (21-32) mmol/L Anion Gap 8.9 (5.0-14.0) mmol/L BUN 27 H D (7-18) mg/dL Creatinine 1.4 H (0.8-1.3) mg/dL Est Cr Clr Drug Dosing 44.82 mL/min Estimated GFR (MDRD) 49 L (>60) Glucose 108 H (74-106) mg/dL Calcium 9.2 (8.5-10.1) mg/dL Total Bilirubin 0.8 D (0.2-1.0) mg/dL AST 93 H D (15-37) U/L ALT 124 H (12-78) U/L Alkaline Phosphatase 67 D (46-116) U/L Creatine Kinase (39-308) U/L Total Protein 7.2 (6.4-8.2) g/dL Albumin 3.7 (3.4-5.0) g/dL Globulin 3.5 (2.3-3.5) g/dL Albumin/Globulin Ratio 1.1 L (1.2-2.2) Urine Color Yellow (YELLOW) Urine Appearance Clear (CLEAR) Urine pH 6.0 (5.0-8.0) Ur Specific [place] 1.025 (1.008-1.030) Urine Protein 30 H (NEGATIVE) mg/dL Urine Glucose (UA) Negative (NEGATIVE) mg/dL Urine Ketones Negative (NEGATIVE) mg/dL Urine Occult Blood Small H (NEGATIVE) Urine Nitrite Negative (NEGATIVE) Urine Bilirubin Negative (NEGATIVE) Urine Urobilinogen 0.2 (0.2-1.0) EU/dL Ur Leukocyte Esterase Negative (NEGATIVE) Urine RBC 5-10 H (0-5) Urine WBC 0-5 (0-5) Ur Epithelial Cells Rare Amorphous Sediment Not seen Urine Bacteria Not seen Urine Mucus Rare Influenza Type A RNA Negative (NEGATIVE) RSV RNA (INAAT) Negative (NEGATIVE) Influenza Type B RNA Negative (NEGATIVE) SARS-CoV-2 RNA (MIKE) Negative (NEGATIVE) 01/19/21 01/19/21 Range/Units 11:56 11:56 WBC 4.0 L (4.5-11.0) K/uL RBC 4.54 (4.30-5.90) M/uL Hgb 13.6 D (12.0-15.0) g/dL Hct 42.9 (40.0-54.0) % MCV 95 (80-98) fL MCH 30 (27-31) pg MCHC 32 (32-36) % Plt Count 102 L (150-400) K/uL Sodium (140-148) mmol/L Potassium (3.6-5.2) mmol/L Chloride (100-108) mmol/L Carbon Dioxide (21-32) mmol/L Anion Gap (5.0-14.0) mmol/L BUN (7-18) mg/dL Creatinine (0.8-1.3) mg/dL Est Cr Clr Drug Dosing mL/min Estimated GFR (MDRD) (>60) Glucose (74-106) mg/dL Calcium (8.5-10.1) mg/dL Total Bilirubin (0.2-1.0) mg/dL AST (15-37) U/L ALT (12-78) U/L Alkaline Phosphatase (46-116) U/L Creatine Kinase 58 (39-308) U/L Total Protein (6.4-8.2) g/dL Albumin (3.4-5.0) g/dL Globulin (2.3-3.5) g/dL Albumin/Globulin Ratio (1.2-2.2) Urine Color (YELLOW) Urine Appearance (CLEAR) Urine pH (5.0-8.0) Ur Specific [place] (1.008-1.030) Urine Protein (NEGATIVE) mg/dL Urine Glucose (UA) (NEGATIVE) mg/dL Urine Ketones (NEGATIVE) mg/dL Urine Occult Blood (NEGATIVE) Urine Nitrite (NEGATIVE) Urine Bilirubin (NEGATIVE) Urine Urobilinogen (0.2-1.0) EU/dL Ur Leukocyte Esterase (NEGATIVE) Urine RBC (0-5) Urine WBC (0-5) Ur Epithelial Cells Amorphous Sediment Urine Bacteria Urine Mucus Influenza Type A RNA (NEGATIVE) RSV RNA (INAAT) (NEGATIVE) Influenza Type B RNA (NEGATIVE) SARS-CoV-2 RNA (MIKE) (NEGATIVE) - Re-Assessments/Exams Free Text/Narrative Re-Assessment/Exam: 80-year-old male presents with concerns of muscle aches, fatigue, headache, fever. Afebrile on exam with reassuring vitals. Exam is overall reassuring, notable for excoriated area in his left ear. His symptoms are overall consistent with tickborne illness, perhaps he had a tick in his left ear that was causing his irritation, as there is no current evidence for what may have been irritating him in this area. Labs were obtained and remarkable for thrombocytopenia, bump in his LFTs, all consistent with a possible tickborne illness. Our plan is to start him on a course of doxycycline. Tick panel is pending. I have asked him to follow-up with his primary doctor this week. 01/20/21 17:05 Departure - Departure Time of Disposition: 14:07 Disposition: Home, Self-Care 01 Clinical Impression: Lyme disease - Discharge Information Instructions: Lyme Disease Referrals: PCP,None [Primary Care Provider] - Forms: ED Department Discharge Additional Instructions: Your symptoms and labs are consistent with lyme disease. Please follow up with your primary doctor this week as discussed. Thank you for trusting us to care for you today Sepsis Event Note (ED) - Evaluation Sepsis Screening Result: No Definite Risk
[2021-01-19 14:35] LABS: CORONAVIRUS COVID-19 NAA NEGATIVE (NEGATIVE)
== END 2021-01-19 15:31 | disposition home or self-care (01) ==
LOC: JP.ED 09:40
DX: A69.20 Lyme disease, unspecified (principal); I48.91 Unspecified atrial fibrillation; I25.10 Atherosclerotic heart disease of native coronary artery without angina pectoris; E78.00 Pure hypercholesterolemia, unspecified; I10 Essential (primary) hypertension; J44.9 Chronic obstructive pulmonary disease, unspecified; Z79.82 Long term (current) use of aspirin; Z79.899 Other long term (current) drug therapy; Z20.822 Contact with and (suspected) exposure to COVID-19
CPT/HCPCS: 0241U; 36415; 80053; 81001; 82550; 85027; 99284